=== PATIENT | female | born 1965 | race Caucasian/White ===

== ENCOUNTER → 2016-09-03 | Outpatient (CLI) | payer MEDICARE, MEDICAID ==
--- NOTE | 2016-09-03 12:12 | REP ---
Clinical: Dyspnea. Technique: PA and lateral. Comparison: 01/15/2015. Findings: Linear plate-like atelectasis in the left lower lobe is appreciated. Mediastinum and cardiac silhouette are stable. No further consolidation, effusion, or pneumothorax. Skeletal structures intact. Impression: Linear plate-like atelectasis in the left lower lobe. Signed by Jay Ramirez MD 09/03/2016 12:04 P
== END ==
LOC: M RAD 11:48
PROVIDERS: ATTEND Internal Medicine Pulmonary Disease
DX: J45.21 Mild intermittent asthma with (acute) exacerbation (principal); R91.8 Other nonspecific abnormal finding of lung field

== ENCOUNTER → 2016-09-28 | Outpatient (CLI) | payer MEDICARE, MEDICAID ==
[2016-09-28 16:29] LABS: BASO % 0.7 % (0.0-1.0); EOS # 0.2 K/mm3 (0.0-0.50); EOS % 3.3 % (0.0-3.0); LARGE UNSTAINED CELL # 0.1 K/mm3 (0.0-0.4); LARGE UNSTAINED CELL % 1.2 % (0.0-4.0); LYMPH # 2.3 K/mm3 (1.5-4.5); LYMPH % 30.2 % (24.0-44.0); MEAN CORPUSCULAR HEMOGLOBIN 28.9 pg (27.0-33.0); MEAN CORPUSCULAR HGB CONC 32.4 g/dl (32.0-36.5); MEAN CORPUSCULAR VOLUME 89.4 fl (80.0-96.0); MONO # 0.4 K/mm3 (0.0-0.8); MONO % 4.9 % (0.0-5.0); NEUTROPHILS # 4.4 K/mm3 (1.8-7.7); NEUTROPHILS % 59.7 % (36.0-66.0); PLATELET COUNT, AUTOMATED 299 k/mm3 (150-450); RED CELL DISTRIBUTION WIDTH 13.5 % (11.5-14.5); WHITE BLOOD COUNT 7.3 K/mm3 (4.0-10.0)
[2016-09-28 17:31] LABS: ANION GAP 8 MEQ/L (8-16); BLOOD UREA NITROGEN 10 MG/DL (7-18); CALCIUM LEVEL 8.9 MG/DL (8.5-10.1); CARBON DIOXIDE LEVEL 28 MEQ/L (21-32); CHLORIDE LEVEL 109 MEQ/L (98-107); CREATININE FOR GFR 0.99 MG/DL (0.55-1.02); GLOMERULAR FILTRATION RATE > 60.0 (>51); GLUCOSE, FASTING 89 MG/DL (70-105); POTASSIUM SERUM 4.1 MEQ/L (3.5-5.1); SODIUM LEVEL 145 MEQ/L (136-145)
== END ==
LOC: M LAB 16:06
PROVIDERS: ATTEND Internal Medicine Cardiovascular Disease
DX: E55.9 Vitamin D deficiency, unspecified (principal)

== ENCOUNTER 2016-10-07 09:49 | Emergency (ER) | payer MEDICARE, MEDICAID ==
--- NOTE | 2016-10-07 10:50 | REP ---
Chest one-view HISTORY: chest pain Comparison: None The lungs are clear. The heart is normal in size. The pulmonary vasculature is normal in appearance. Impression: No acute disease. Signed by Bryan Dean MD 10/07/2016 10:42 A
[2016-10-07 10:53] LABS: BASO # 0.1 K/mm3 (0.0-0.2); BASO % 0.7 % (0.0-1.0); EOS # 0.3 K/mm3 (0.0-0.50); EOS % 3.4 % (0.0-3.0); LARGE UNSTAINED CELL # 0.2 K/mm3 (0.0-0.4); LARGE UNSTAINED CELL % 2.1 % (0.0-4.0); LYMPH # 2.6 K/mm3 (1.5-4.5); LYMPH % 29.1 % (24.0-44.0); MEAN CORPUSCULAR HEMOGLOBIN 29.6 pg (27.0-33.0); MEAN CORPUSCULAR HGB CONC 33.6 g/dl (32.0-36.5); MEAN CORPUSCULAR VOLUME 88.1 fl (80.0-96.0); MONO # 0.5 K/mm3 (0.0-0.8); MONO % 5.3 % (0.0-5.0); NEUTROPHILS % 59.4 % (36.0-66.0); PLATELET COUNT, AUTOMATED 280 k/mm3 (150-450); RED CELL DISTRIBUTION WIDTH 13.4 % (11.5-14.5); WHITE BLOOD COUNT 8.5 K/mm3 (4.0-10.0)
[2016-10-07 11:18] LABS: ANION GAP 7 MEQ/L (8-16); BLOOD UREA NITROGEN 7 MG/DL (7-18); CALCIUM LEVEL 8.8 MG/DL (8.5-10.1); CARBON DIOXIDE LEVEL 30 MEQ/L (21-32); CHLORIDE LEVEL 104 MEQ/L (98-107); CREATININE FOR GFR 0.92 MG/DL (0.55-1.02); GLOMERULAR FILTRATION RATE > 60.0 (>51); GLUCOSE, FASTING 103 MG/DL (70-105); POTASSIUM SERUM 4.6 MEQ/L (3.5-5.1); SODIUM LEVEL 141 MEQ/L (136-145)
[2016-10-07] MEDS ORDERED: ISOVUE-370 76% 100ML VIAL (Q9967) As Ordered ONE (11:48)
[2016-10-07] MEDS ORDERED: ASPIRIN 81 MG CHEW TABLET As Ordered ONE (11:50)
[2016-10-07] MEDS ORDERED: NITROGLYCERIN 0.4 MG SUBL TABLET As Ordered ONE (11:50)
--- NOTE | 2016-10-07 12:25 | ECGEPIP ---
Stationary ECG Study [facility] - ED Test Date: 2016-10-07 Pat Name: JENNIFER WARREN Department: Room: - Gender: F Extracorporeal Technician: NASREEN : 1965 Requested By: GOLDY Dorman Order Number: [id number] Reading MD: Andrew Sands Measurements Intervals [place] Rate: 74 P: 28 CA: 208 QRS: 33 QRSD: 105 T: -25 QT: 401 QTc: 447 Interpretive Statements SINUS RHYTHM, BORDERLINE FIRST DEGREE AV BLOCK NONSPECIFIC INFERIOR T WAVE ABNORMALITIES SIMILAR TO 09/01/12 Electronically Signed On 10-07-2016 12:25:23 EST by Andrew Sands
--- NOTE | 2016-10-07 13:17 | REP ---
Clinical: Acute chest pain and shortness of breath. Technique: Axial contrast enhanced images from the thoracic inlet to the upper abdomen using 100 ml Isovue 370 intravenous contrast material with coronal and sagittal re-formations. Findings: Satisfactory enhancement of the pulmonary vasculature is achieved and no filling defects are identified to suggest pulmonary embolus. Thoracic aorta is normal caliber without aneurysm or dissection. Heart and pericardium are unremarkable. Bilateral lung ponce are clear without acute pulmonary parenchymal consolidation or atelectasis. No nodule or mass lesion. No pleural effusion/reaction. No pneumothorax. No adenopathy. Impression: No evidence for pulmonary embolus. No acute pleuroparenchymal or mediastinal process. Signed by Jay Ramirez MD 10/07/2016 01:08 P
--- NOTE | 2016-10-07 18:24 | ECGEPIP ---
Stationary ECG Study [facility] - ED Test Date: 2016-10-07 Pat Name: JENNIFER WARREN Department: Room: - Gender: F Director Of Annual Giving: NASREEN : 1965 Requested By: GOLDY Dorman Order Number: [id number] Reading MD: Andrew Sands Measurements Intervals [place] Rate: 65 P: 22 NE: 221 QRS: 19 QRSD: 106 T: -47 QT: 426 QTc: 445 Interpretive Statements SINUS RHYTHM WITH FIRST DEGREE AV BLOCK MODERATE T-WAVE ABNORMALITY, CONSIDER INFERIOR ISCHEMIA SIMILAR TO 10/07/16 Electronically Signed On 10-07-2016 18:23:38 EST by Andrew Sands
--- NOTE | 2016-10-07 18:57 | EDDOCDS ---
Nurse's Notes [facility] Name: Yuliya Warren Age: 50 yrs Sex: Female : 1965 Arrival Date: 10/07/2016 Time: 09:49 Bed 14 Private MD: Diagnosis: Chest pain, unspecified Presentation: 10/07 10:00 Presenting complaint: Patient states: Had a cardiac cath last because of jo3 troubles with Mitral valve. Has had increased chest pain for two days that "feels like someone is sitting on my chest" with intermittent sharp shooting pain across to the left chest. Primary pain is in mid anterior chest. Chest pain is also accompanied by SOB and diaphoresis. Pt states that the doctor told her after cardiac cath that her arteries were fine but she needs a mitral valve replacement. 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 Adult Sepsis Screening: The patient does not have new or worsening altered mentation. Patient's respiratory rate is less than 22. Systolic blood pressure is greater than 100. Patient has a qSOFA score of 0- Negative Sepsis Screen. Suicide/Homicide risk assessment- the patient denies having any suicidal and/or homicidal ideations and does not present with any other emotional, behavioral or mental health complaints. Status: Patient is not a manager creative services or dependent. Transition of care: patient was not received from another setting of care. 10:00 Acuity: KEYANA Level 2 jo3 10:00 Method Of Arrival: Walkin/Carried/Asstd jo3 Triage Assessment: 10:12 General: Appears in no apparent distress, comfortable, Behavior is appropriate for age, jo3 cooperative. Pain: Pain currently is 8 out of 10 on a pain scale. HIV screening NA for this visit Offered previously. Neurological: Level of Consciousness is awake, alert, Oriented to person, place, time. Cardiovascular: Capillary refill is brisk Heart tones S1 S2 present Rhythm is sinus rhythm No ectopy. Chest pain is described as severe, radiates to left shoulder episodes are continuous intermittent shooting pains began yesterday. Cardiovascular: Edema is absent. Respiratory: Airway is patent Respiratory effort is even, unlabored, Breath sounds are clear bilaterally. Derm: Skin is intact, Skin is clammy, Skin is pale, Skin temperature is cool. 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 Zoloft 100 mg Oral tab 1 tab once daily (Last dose: 10/06/2016 20:00) 2. Zyrtec 10 mg Oral tab 1 tab once daily (Last dose: 10/06/2016 20:00) 3. Singulair 10 mg Oral tab 1 tab once daily 4. Requip 2 mg Oral tab 1 tab Daily (Last dose: 10/06/2016 20:00) 5. gabapentin 300 mg Oral Tb24 1 cap in afternoon and 2 caps in ronine (Last dose: 10/06/2016 20:00) 6. Vitamin B-12 1,000 mcg Oral tab (Last dose: 10/06/2016 07:00) 7. multivitamin Oral tab daily (Last dose: 10/06/2016 08:00) 8. Vitamin D Oral 5000 unit (Last dose: 10/06/2016 07:00) - PMHx: restless leg; Asthma; diabetic neuropathy; Diabetes - NIDDM: controllednot medicated since gastric bypass; aortic stenosis; mitral valve issue (unknown); - PSHx: Appendectomy; Hysterectomy; Adenoidectomy; Repair aortic stenosis; Tonsillectomy; Cholecystectomy; ; Gastric Bypass; cardiac cath; - Social history: Smoking status: Patient states former smoker of tobacco. No barriers to communication noted, The patient speaks fluent Slovak, Speaks appropriately for age. - Family history: Not pertinent. - : The pt / caregiver states he / she is not on anticoagulants. Home medication list is obtained from the patient. - Exposure Risk Screening:: None identified. Screenin:37 Screening information is obtained from the patient. Fall risk: No risks identified. jo3 Assistance ADL's: requires no assistance with activities of daily living. Abuse/DV Screen: The patient / caregiver reports he/she is: not in a situation that causes fear, pain or injury. Nutritional screening: No deficits noted. Advance Directives: There is no active DNR order. home support is adequate. Assessment: 10:37 Reassessment: see triage assessment. XR in room at this time . jo3 11:35 Reassessment: Patient appears in no apparent distress at this time. Patient states jo3 feeling better. Patient states symptoms have improved. Pt states that pain and SOB improved since arrival. Awaiting results at this time. Aware of plan of care . 12:23 General: Appears in no apparent distress, comfortable, Behavior is appropriate for age, jo3 cooperative. General: 3 SL Nitro administered approximately 5 minutes each apart. No significant change noted after each. Pt states that pain may have decreased from 7/10 to 6/10 . Neurological: No deficits noted. Level of Consciousness is awake, alert, Oriented to person, place, time. Cardiovascular: Rhythm is sinus rhythm No ectopy. Respiratory: Airway is patent Respiratory effort is even, unlabored. Derm: Skin is intact, Skin is clammy, Skin is pale. 12:58 General: Appears in no apparent distress, comfortable, Behavior is appropriate for age, jo3 cooperative. General: CT angio completed at this time. returned to room by this sign writer hand. Awaiting results. aware of plan of care . Neurological: Level of Consciousness is awake, alert, Oriented to person, place, time. Respiratory: Airway is patent Respiratory effort is even, unlabored. 14:46 General: Appears in no apparent distress, Behavior is appropriate for age, cooperative, jo3 pleasant. General: Pt reports that she is feeling diaphoretic again at this time. FSBS completed for results of 91. Provider notified. Lunch tray ordered at this time . Neurological: Level of Consciousness is awake, alert, Oriented to person, place, time. Cardiovascular: Rhythm is sinus rhythm No ectopy. Respiratory: Airway is patent Respiratory effort is even, unlabored. Derm: Skin is intact, Skin is clammy, Skin is pale. 15:41 Reassessment: Patient appears in no apparent distress at this time. Patient states jo3 feeling better. Finished with lunch tray at this time. resting on stretcher with mother at bedside. Awaiting labs to be drawn at 1600. Aware of plan of care . 16:45 Reassessment: Patient appears in no apparent distress at this time. No significant jo3 changes noted. pt reports that she continues to feel improved since arrival. Awaiting results for disposition. Aware of plan of care . 17:45 Reassessment:. General: Appears in no apparent distress, comfortable, Behavior is jo3 appropriate for age, cooperative. General: Awaiting results for disposition. Aware of plan of care . Neurological: Level of Consciousness is awake, alert, Oriented to person, place, time. Cardiovascular: Rhythm is sinus rhythm No ectopy. Respiratory: Airway is patent Respiratory effort is even, unlabored. 18:49 General: Appears in no apparent distress, comfortable, Behavior is appropriate for age, jo3 cooperative, pleasant. Pain: Denies pain. Neurological: No deficits noted. Level of Consciousness is awake, alert, Oriented to person, place, time. Respiratory: Airway is patent Respiratory effort is even, unlabored. Vital Signs: 09:50 BP 147 / 73 RA Sitting (auto/reg); Pulse 83; Resp 18; Temp 99.7(O); Pulse Ox 96% on jrd R/A; Weight 117.03 kg; Height 5 ft. 3 in. (160.02 cm); Pain 9/10; 10:14 BP 133 / 62 (auto/); jo3 10:14 Pulse 68 MON; Pulse Ox 100% ; jo3 10:32 BP 119 / 65 (auto/); jo3 10:32 Pulse 70 MON; jo3 10:44 BP 104 / 56 (auto/); jo3 10:44 Pulse 66 MON; Pulse Ox 98% ; jo3 11:28 Temp 98.2(O); jo3 11:53 BP 120 / 89 (auto/); jo3 11:53 Pulse 68 MON; Pulse Ox 98% ; jo3 12:00 BP 116 / 60 (auto/); jo3 12:00 Pulse 76 MON; Pulse Ox 97% ; jo3 12:01 Pain 7/10; jo3 12:10 BP 115 / 57 (auto/); jo3 12:10 Pulse 78 MON; Pulse Ox 96% ; jo3 12:17 BP 103 / 55 (auto/); jo3 12:17 Pulse 78 MON; Pulse Ox 96% ; jo3 13:00 Pulse 68 MON; Pulse Ox 99% ; jo3 13:30 Pulse 68 MON; Pulse Ox 99% ; jo3 13:45 Pulse 70 MON; Pulse Ox 98% ; jo3 14:00 Pulse 68 MON; Pulse Ox 98% ; jo3 14:15 Pulse 66 MON; Pulse Ox 99% ; jo3 14:19 BP 121 / 65 (auto/); jo3 14:19 Pulse 64 MON; Pulse Ox 99% ; jo3 14:45 Pulse 64 MON; Pulse Ox 99% ; jo3 16:06 BP 130 / 59 (auto/); jo3 16:06 Pulse 66 MON; jo3 17:00 BP 120 / 60; Pulse 66 MON; jo3 18:00 BP 127 / 60 (auto/); jo3 18:01 Pulse 68 MON; jo3 18:25 BP 135 / 80; Pulse 72; Resp 17; Temp 97.3(O); Pulse Ox 98% on R/A; lr2 09:50 Body Mass Index 45.70 (117.03 kg, 160.02 cm) jrd Vitals: 09:50 Log In Time: October 07, 2016 at 09:47. jrd 09:50 RN notified that patient meets Red Flag criteria. jrd ED Course: 09:50 Patient visited by Mika Hebert PCA. jrd 09:50 Patient moved to Waiting jrd 09:51 Patient moved to 14 mlb1 09:52 Patient visited by Mika Hebert PCA. jrd 09:53 Patient visited by Mika Hebert PCA. jrd 09:59 EKG done. (by ED staff). Reviewed by Goldy Burnette MD. jml1 10:05 Triage Initiated jo3 10:15 Patient visited by Jaycee Ponce RN. jo3 10:36 Basic Metabolic Profile Sent. jo3 10:36 CBC with Diff Sent. jo3 10:36 Cardiac Injury Profile Sent. jo3 10:36 Troponin Sent. jo3 10:37 Patient visited by Jaycee Ponce RN. jo3 10:37 The patient / caregiver is instructed regarding the plan of care and ED course. Cardiac jo3 monitor on. Pulse ox on. NIBP on. 10:37 Inserted saline lock: 18 gauge in right antecubital area. Labs drawn. (by ED staff). jo3 Sent per order to lab. 11:26 Goldy Burnette MD is Attending Physician. br1 11:29 Chest, 1 View Returned. EDMS 11:34 Patient visited by Goldy Burnette MD. br1 11:44 [facility] [place] was scanned into [employer] and attached to record. mm15 12:25 Patient visited by Jaycee Ponce,NANDINI. jo3 12:26 Patient visited by Jaycee Ponce,NANDINI. jo3 12:28 Patient visited by Jaycee Ponce RN. jo3 12:47 EKG-ADULT Returned. EDMS 12:59 Patient visited by Jaycee Ponce RN. jo3 13:34 CT Chest Angio R/O PE Returned. EDMS 14:17 Patient visited by Jaycee Ponce RN. jo3 15:10 Patient visited by Jaycee Ponce,NANDINI. jo3 15:42 Patient visited by Jaycee Ponce,NANDINI. jo3 16:05 Patient visited by Isaiah Sexton. jml1 16:05 EKG done. (by ED staff). Reviewed by Goldy Burnette MD. jml1 16:10 CARDIAC MARKER PANEL Sent. jml1 17:53 Patient visited by Jaycee Ponce RN. jo3 18:06 Patient visited by Goldy Burnette MD. br1 18:08 Patient visited by Jaycee Ponce RN. jo3 18:19 [facility] is Referral Physician. br1 18:19 Your own Physician is Referral Physician. br1 18:49 Discontinued IV lock intact, bleeding controlled, pressure dressing applied, No jo3 redness/swelling at site. No procedures done that require assistance. Administered Medications: 11:55 Drug: Aspirin 324 mg [aspirin 81 mg chewable tablet (4 tabs)] Route: PO; jo3 11:55 Drug: Nitrostat 0.4 mg [Nitrostat 0.4 mg sublingual tablet (1 tabs)] Route: Sublingual; jo3 12:01 Follow up: Pain 03/01 Adult; Response: Pain is unchanged, physician notified jo3 12:02 Drug: Nitrostat 0.4 mg [Nitrostat 0.4 mg sublingual tablet (1 tabs)] Route: Sublingual; jo3 12:08 Drug: Nitrostat 0.4 mg [Nitrostat 0.4 mg sublingual tablet (1 tabs)] Route: Sublingual; jo3 Order Results: Lab Order: Basic Metabolic Profile; SPEC'M 10/07/16 10:34 Test: GLUCOSE, FASTING; Value: 103; Range: 70-105; Units: MG/DL; Status: F Test: BLOOD UREA NITROGEN; Value: 7; Range: 7-18; Units: MG/DL; Status: F Test: CREATININE FOR GFR; Value: 0.92; Range: 0.55-1.02; Units: MG/DL; Status: F Test: GLOMERULAR FILTRATION RATE; Value: > 60.0; Range: >51; Status: F Test: SODIUM LEVEL; Value: 141; Range: 136-145; Units: MEQ/L; Status: F Test: POTASSIUM SERUM; Value: 4.6; Range: 3.5-5.1; Units: MEQ/L; Status: F Test: CHLORIDE LEVEL; Value: 104; Range: 98-107; Units: MEQ/L; Status: F Test: CARBON DIOXIDE LEVEL; Value: 30; Range: 21-32; Units: MEQ/L; Status: F Test: ANION GAP; Value: 7; Range: 8-16; Abnormal: Below low normal; Units: MEQ/L; Status: F Test: CALCIUM LEVEL; Value: 8.8; Range: 8.5-10.1; Units: MG/DL; Status: F Test Note: ; Units are mL/min/1.73 m2 Chronic Kidney Disease Staging per NKF: Stage I & II GFR >=60 Normal to Mildly Decreased Stage III GFR 30-59 Moderately Decreased Stage IV GFR 15-29 Severely Decreased Stage V GFR <15 Very Little GFR Left ESRD GFR <15 on STAMPING BENCH DIE MAKER Lab Order: CBC with Diff; SPEC'M 10/07/16 10:34 Test: WHITE BLOOD COUNT; Value: 8.5; Range: 4.0-10.0; Units: K/mm3; Status: F Test: RED BLOOD COUNT; Value: 4.27; Range: 4.00-5.40; Units: M/mm3; Status: F Test: HEMOGLOBIN; Value: 12.6; Range: 12.0-16.0; Units: g/dl; Status: F Test: HEMATOCRIT; Value: 37.6; Range: 36.0-47.0; Units: %; Status: F Test: MEAN CORPUSCULAR VOLUME; Value: 88.1; Range: 80.0-96.0; Units: fl; Status: F Test: MEAN CORPUSCULAR HEMOGLOBIN; Value: 29.6; Range: 27.0-33.0; Units: pg; Status: F Test: MEAN CORPUSCULAR HGB CONC; Value: 33.6; Range: 32.0-36.5; Units: g/dl; Status: F Test: RED CELL DISTRIBUTION WIDTH; Value: 13.4; Range: 11.5-14.5; Units: %; Status: F Test: PLATELET COUNT, AUTOMATED; Value: 280; Range: 150-450; Units: k/mm3; Status: F Test: NEUTROPHILS %; Value: 59.4; Range: 36.0-66.0; Units: %; Status: F Test: LYMPH %; Value: 29.1; Range: 24.0-44.0; Units: %; Status: F Test: MONO %; Value: 5.3; Range: 0.0-5.0; Abnormal: Above high normal; Units: %; Status: F Test: EOS %; Value: 3.4; Range: 0.0-3.0; Abnormal: Above high normal; Units: %; Status: F Test: BASO %; Value: 0.7; Range: 0.0-1.0; Units: %; Status: F Test: LARGE UNSTAINED CELL %; Value: 2.1; Range: 0.0-4.0; Units: %; Status: F Test: NEUTROPHILS #; Value: 5.0; Range: 1.8-7.7; Units: K/mm3; Status: F Test: LYMPH #; Value: 2.6; Range: 1.5-4.5; Units: K/mm3; Status: F Test: MONO #; Value: 0.5; Range: 0.0-0.8; Units: K/mm3; Status: F Test: EOS #; Value: 0.3; Range: 0.0-0.50; Units: K/mm3; Status: F Test: BASO #; Value: 0.1; Range: 0.0-0.2; Units: K/mm3; Status: F Test: LARGE UNSTAINED CELL #; Value: 0.2; Range: 0.0-0.4; Units: K/mm3; Status: F Lab Order: Cardiac Injury Profile; SPEC'M 10/07/16 10:34 Test: CPK CREATINE PHOSPHOKINASE; Value: 41; Range: 26-192; Units: U/L; Status: F Test: CK-MB VALUE MASS; Value: 1.0; Range: 0.0-3.6; Units: NG/ML; Status: F Test: MB/CK RELATIVE INDEX; Value: 2.43; Range: < OR =4; Status: F Test Note: ; DIAGNOSIS CRITERIA MMB ng/ml Relative Index (RI) NON-AMI < or = 5 N/A ALLEN ZONE > 5 < or = 4 AMI > 5 > 4 Lab Order: Troponin; [facility] 10/07/16 10:34 Test: TROPONIN I; Value: < 0.02; Range: < 0.10; Units: NG/ML; Status: F Test Note: ; Troponin I Reference Interval for [employer] LOCI: 99th Percentile= 0.00-0.045 ng/ml Risk Stratification: <= 0.10 ng/ml Decreased Risk for Adverse Clinical Events. 0.10-1.50 ng/ml Increased Risk for Adverse Clinical Events. Evaluation of additional criterion and/or repeat testing in 2-6 hours is suggested to rule out myocardial damage. >= 1.50 ng/ml Indicative of Myocardial Injury. Lab Order: Fingerstick Blood Sugar; [facility] 10/07/16 14:40 Test: BEDSIDE GLUCOSE; Value: 91; Range: 70-105; Units: MG/DL; Status: F Lab Order: CARDIAC MARKER PANEL; [facility] 10/07/16 16:07 Test: CPK CREATINE PHOSPHOKINASE; Value: 79; Range: 26-192; Abnormal: Delta; Units: U/L; Status: F Test: CK-MB VALUE MASS; Value: 1.0; Range: 0.0-3.6; Units: NG/ML; Status: F Test: MB/CK RELATIVE INDEX; Value: 1.26; Range: < OR =4; Status: F Test: TROPONIN I; Value: < 0.02; Range: < 0.10; Units: NG/ML; Status: F Test Note: ; DIAGNOSIS CRITERIA MMB ng/ml Relative Index (RI) NON-AMI < or = 5 N/A ALLEN ZONE > 5 < or = 4 AMI > 5 > 4 Radiology Order: EKG-ADULT Test: EKG-ADULT REASON FOR EXAMINATION: Chest Pain; Stationary ECG Study; [facility] - ED; ; Test Date: 2016-10-07; Pat Name: YULIYA WARREN Department:; Room: -; Gender: F Director Of Strategic Initiatives: ChristineKylie; : 1965 Requested By: GOLDY Dorman; Order Number: [id number] Reading MD: Andrew Sands; Measurements; Intervals [place]; Rate: 74 P: 28; OK: 208 QRS: 33; QRSD: 105 T: -25; QT: 401; QTc: 447; Interpretive Statements; SINUS RHYTHM, BORDERLINE FIRST DEGREE AV BLOCK; NONSPECIFIC INFERIOR T WAVE ABNORMALITIES; SIMILAR TO 09/01/12; Electronically Signed On 10-07-2016 12:25:23 EST by Andrew Sands; Radiology Order: Chest, 1 View Test: Chest, 1 View REASON FOR EXAMINATION: Chest Pain; Chest one-view; ; HISTORY: chest pain; ; Comparison: None; ; The lungs are clear. The heart is normal in size. The pulmonary vasculature is; normal in appearance.; ; Impression: No acute disease.; ; ; Signed by; Bryan Dean MD 10/07/2016 10:42 A; Radiology Order: CT Chest Angio R/O PE Test: CT Chest Angio R/O PE REASON FOR EXAMINATION: Chest Pain;Shortness of Breath; Clinical: Acute chest pain and shortness of breath.; ; Technique: Axial contrast enhanced images from the thoracic inlet to the upper; abdomen using 100 ml Isovue 370 intravenous contrast material with coronal and; sagittal re-formations.; ; Findings: Satisfactory enhancement of the pulmonary vasculature is achieved and; no filling defects are identified to suggest pulmonary embolus. Thoracic aorta; is normal caliber without aneurysm or dissection. Heart and pericardium are; unremarkable. Bilateral lung ponce are clear without acute pulmonary; parenchymal consolidation or atelectasis. No nodule or mass lesion. No pleural; effusion/reaction. No pneumothorax. No adenopathy.; ; Impression:; No evidence for pulmonary embolus.; No acute pleuroparenchymal or mediastinal process.; ; ; Signed by; Jay Ramirez MD 10/07/2016 01:08 P; Outcome: 18:20 Discharge ordered by Provider. br1 18:49 Discharge Assessment: Patient awake, alert and oriented x 3. No cognitive and/or jo3 functional deficits noted. Patient verbalized understanding of disposition instructions. patient administered narcotics - no. The following High Risk Discharge criteria are identified: None. Discharged to home ambulatory, with family. Condition: stable Condition: improved. Discharge instructions given to patient, Instructed on discharge instructions, follow up and referral plans. Demonstrated understanding of instructions, Pt was receptive of discharge instructions/ teaching. CT Study completed. Property sent home with patient. 18:56 Patient left the ED. jo3 Signatures: Dispatcher [employer] EDClarence Crooks RN RN mlb1 Jaycee PonceRN RN jo3 Goldy Burnette MD MD br1 Isaiah Sexton jml1 Magy Murillo mm15 Mika Hebert, JUSTIN RISK DEVELOPER jrd Ryann Matute2 JOSE ELIAS
--- NOTE | 2016-10-07 18:58 | EDDOCDS ---
Physician Documentation [facility] Name: Yuliya Jacob Age: 50 yrs Sex: Female : 1965 Arrival Date: 10/07/2016 Time: 09:49 Bed 14 Private MD: Disposition: 10/07/16 18:20 Discharged to Home/Self Care. Impression: Chest pain, unspecified. - Condition is Stable. - Discharge Instructions: Nonspecific Chest Pain. - Medication Reconciliation, Local Pharmacy Hours form. - Follow up: [facility] - Adults; When: 1 - 2 days; Reason: Recheck today's complaints. Follow up: Your own Physician; When: 2 - 3 days; Reason: Recheck today's complaints. - Problem is new. - Symptoms are resolved. - Notes: You were seen in the ED for chest pain. Bloodwork along with EKG of the heart, chest Xray, and CT scan of the chest showed no acute findings. We have consulted with your [place] group as well who has recommended you may return home to follow up with your primary doctor and with them in the office. Please call these two offices today to make these appointments. Return to the ED for any chest pain, trouble breathing, lightheadedness, loss of consciousness or any other concerns. Historical: - Allergies: Ultram; Codeine Sulfate; Percocet; - Home Meds: 1. Zoloft 100 mg Oral tab 1 tab once daily (Last dose: 10/06/2016 20:00) 2. Zyrtec 10 mg Oral tab 1 tab once daily (Last dose: 10/06/2016 20:00) 3. Singulair 10 mg Oral tab 1 tab once daily 4. Requip 2 mg Oral tab 1 tab Daily (Last dose: 10/06/2016 20:00) 5. gabapentin 300 mg Oral Tb24 1 cap in afternoon and 2 caps in ronnie (Last dose: 10/06/2016 20:00) 6. Vitamin B-12 1,000 mcg Oral tab (Last dose: 10/06/2016 07:00) 7. multivitamin Oral tab daily (Last dose: 10/06/2016 08:00) 8. Vitamin D Oral 5000 unit (Last dose: 10/06/2016 07:00) - PMHx: restless leg; Asthma; diabetic neuropathy; Diabetes - NIDDM: controllednot medicated since gastric bypass; aortic stenosis; mitral valve issue (unknown); - PSHx: Appendectomy; Hysterectomy; Adenoidectomy; Repair aortic stenosis; Tonsillectomy; Cholecystectomy; ; Gastric Bypass; cardiac cath; - Social history: Smoking status: Patient states former smoker of tobacco. No barriers to communication noted, The patient speaks fluent Danish, Speaks appropriately for age. - Family history: Not pertinent. - : The pt / caregiver states he / she is not on anticoagulants. Home medication list is obtained from the patient. - Exposure Risk Screening:: None identified. 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 3 in. (160.02 cm); Pain 9/10; 10:14 BP 133 / 62 (auto/); jo3 10:14 Pulse 68 MON; Pulse Ox 100% ; jo3 10:32 BP 119 / 65 (auto/); jo3 10:32 Pulse 70 MON; jo3 10:44 BP 104 / 56 (auto/); jo3 10:44 Pulse 66 MON; Pulse Ox 98% ; jo3 11:28 Temp 98.2(O); jo3 11:53 BP 120 / 89 (auto/); jo3 11:53 Pulse 68 MON; Pulse Ox 98% ; jo3 12:00 BP 116 / 60 (auto/); jo3 12:00 Pulse 76 MON; Pulse Ox 97% ; jo3 12:01 Pain 7/10; jo3 12:10 BP 115 / 57 (auto/); jo3 12:10 Pulse 78 MON; Pulse Ox 96% ; jo3 12:17 BP 103 / 55 (auto/); jo3 12:17 Pulse 78 MON; Pulse Ox 96% ; jo3 13:00 Pulse 68 MON; Pulse Ox 99% ; jo3 13:30 Pulse 68 MON; Pulse Ox 99% ; jo3 13:45 Pulse 70 MON; Pulse Ox 98% ; jo3 14:00 Pulse 68 MON; Pulse Ox 98% ; jo3 14:15 Pulse 66 MON; Pulse Ox 99% ; jo3 14:19 BP 121 / 65 (auto/); jo3 14:19 Pulse 64 MON; Pulse Ox 99% ; jo3 14:45 Pulse 64 MON; Pulse Ox 99% ; jo3 16:06 BP 130 / 59 (auto/); jo3 16:06 Pulse 66 MON; jo3 17:00 BP 120 / 60; Pulse 66 MON; jo3 18:00 BP 127 / 60 (auto/); jo3 18:01 Pulse 68 MON; jo3 18:25 BP 135 / 80; Pulse 72; Resp 17; Temp 97.3(O); Pulse Ox 98% on R/A; lr2 09:50 Body Mass Index 45.70 (117.03 kg, 160.02 cm) jrd MDM: 09:54 ECG WITH READING ER PHYS+CARDIAG ordered. EDMS 10:03 Cabinet Builder/Pulse Ox/q 30 min VS ordered. br1 10:03 IV Saline Lock ordered. br1 10:03 Rhythm Strip to chart ordered. br1 10:03 Undress patient appropriately for examination ordered. br1 10:03 Basic Metabolic Profile Ordered. EDMS 10:03 CBC with Diff Ordered. EDMS 10:03 Cardiac Injury Profile Ordered. EDMS 10:03 Troponin Ordered. EDMS 10:13 Chest, 1 View Ordered. EDMS 11:35 Aspirin 324 mg PO once ordered. br1 11:35 Nitrostat 0.4 mg Sublingual every 5 minutes; hold if SBP<90mmHg.Document Pain Score br1 Response to Each Dose x3 ordered. 11:37 CT Chest Angio R/O PE Ordered. EDMS 11:41 Financial registration complete. mm15 11:44 [facility] Payment Agreement was scanned into Smeet and attached to record. mm15 14:29 Basic Metabolic Profile Reviewed. br1 14:29 CBC with Diff Reviewed. br1 14:29 Cardiac Injury Profile Reviewed. br1 14:29 Troponin Reviewed. br1 14:29 EKG-ADULT Reviewed. br1 14:29 Chest, 1 View Reviewed. br1 14:29 CT Chest Angio R/O PE Reviewed. br1 14:37 Repeat EKG (put time details section) ordered. br1 14:37 Redraw CIP &Troponin (put time in details section) ordered. br1 14:37 Admit to ED Observation status ordered. br1 14:49 REGULAR+DIET ordered. EDMS 14:50 Fingerstick Blood Sugar Ordered. EDMS 14:58 Repeat EKG (put time details section) complete. lbd 14:58 Redraw CIP &Troponin (put time in details section) complete. lbd 14:58 Admit to ED Observation status complete. lbd 15:02 ECG WITH READING ER PHYS ordered. EDMS 15:03 CARDIAC MARKER PANEL Ordered. EDMS 18:05 CARDIAC MARKER PANEL Reviewed. br1 18:05 Fingerstick Blood Sugar Reviewed. br1 Administered Medications: 11:55 Drug: Aspirin 324 mg [aspirin 81 mg chewable tablet (4 tabs)] Route: PO; jo3 11:55 Drug: Nitrostat 0.4 mg [Nitrostat 0.4 mg sublingual tablet (1 tabs)] Route: Sublingual; jo3 12:01 Follow up: Pain 03/01 Adult; Response: Pain is unchanged, physician notified jo3 12:02 Drug: Nitrostat 0.4 mg [Nitrostat 0.4 mg sublingual tablet (1 tabs)] Route: Sublingual; jo3 12:08 Drug: Nitrostat 0.4 mg [Nitrostat 0.4 mg sublingual tablet (1 tabs)] Route: Sublingual; jo3 Signatures: Dispatcher [employer] Laurel Harrison, Net Repairer [facility] Jaycee Ponce,RN RN jo3 Tanner Burnette MD MD br1 Magy Murillo mm15 The chart was reviewed and I authenticate all verbal orders and agree with the evaluation and treatment provided.Attachments: 11:44 [facility] [place] Payment Agreement mm15 MTDD
--- NOTE | 2016-10-09 19:57 | EDDOCDS ---
Physician Documentation [facility] Name: Yuliya Jacob Age: 50 yrs Sex: Female : 1965 Arrival Date: 10/07/2016 Time: 09:49 Bed 14 Private MD: Disposition: 10/07/16 18:20 Discharged to Home/Self Care. Impression: Chest pain, unspecified. - Condition is Stable. - Discharge Instructions: Nonspecific Chest Pain. - Medication Reconciliation, Local Pharmacy Hours form. - Follow up: [facility] - Adults; When: 1 - 2 days; Reason: Recheck today's complaints. Follow up: Your own Physician; When: 2 - 3 days; Reason: Recheck today's complaints. - Problem is new. - Symptoms are resolved. - Notes: You were seen in the ED for chest pain. Bloodwork along with EKG of the heart, chest Xray, and CT scan of the chest showed no acute findings. We have consulted with your [place]' [facility]iology group as well who has recommended you may return home to follow up with your primary doctor and with them in the office. Please call these two offices today to make these appointments. Return to the ED for any chest pain, trouble breathing, lightheadedness, loss of consciousness or any other concerns. Historical: - Allergies: Ultram; Codeine Sulfate; Percocet; - Home Meds: 1. Zoloft 100 mg Oral tab 1 tab once daily (Last dose: 10/06/2016 20:00) 2. Zyrtec 10 mg Oral tab 1 tab once daily (Last dose: 10/06/2016 20:00) 3. Singulair 10 mg Oral tab 1 tab once daily 4. Requip 2 mg Oral tab 1 tab Daily (Last dose: 10/06/2016 20:00) 5. gabapentin 300 mg Oral Tb24 1 cap in afternoon and 2 caps in ronnie (Last dose: 10/06/2016 20:00) 6. Vitamin B-12 1,000 mcg Oral tab (Last dose: 10/06/2016 07:00) 7. multivitamin Oral tab daily (Last dose: 10/06/2016 08:00) 8. Vitamin D Oral 5000 unit (Last dose: 10/06/2016 07:00) - PMHx: restless leg; Asthma; diabetic neuropathy; Diabetes - NIDDM: controllednot medicated since gastric bypass; aortic stenosis; mitral valve issue (unknown); - PSHx: Appendectomy; Hysterectomy; Adenoidectomy; Repair aortic stenosis; Tonsillectomy; Cholecystectomy; ; Gastric Bypass; cardiac cath; - Social history: Smoking status: Patient states former smoker of tobacco. No barriers to communication noted, The patient speaks fluent Arabic, Speaks appropriately for age. - Family history: Not pertinent. - : The pt / caregiver states he / she is not on anticoagulants. Home medication list is obtained from the patient. - Exposure Risk Screening:: None identified. 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 3 in. (160.02 cm); Pain 9/10; 10:14 BP 133 / 62 (auto/); jo3 10:14 Pulse 68 MON; Pulse Ox 100% ; jo3 10:32 BP 119 / 65 (auto/); jo3 10:32 Pulse 70 MON; jo3 10:44 BP 104 / 56 (auto/); jo3 10:44 Pulse 66 MON; Pulse Ox 98% ; jo3 11:28 Temp 98.2(O); jo3 11:53 BP 120 / 89 (auto/); jo3 11:53 Pulse 68 MON; Pulse Ox 98% ; jo3 12:00 BP 116 / 60 (auto/); jo3 12:00 Pulse 76 MON; Pulse Ox 97% ; jo3 12:01 Pain 7/10; jo3 12:10 BP 115 / 57 (auto/); jo3 12:10 Pulse 78 MON; Pulse Ox 96% ; jo3 12:17 BP 103 / 55 (auto/); jo3 12:17 Pulse 78 MON; Pulse Ox 96% ; jo3 13:00 Pulse 68 MON; Pulse Ox 99% ; jo3 13:30 Pulse 68 MON; Pulse Ox 99% ; jo3 13:45 Pulse 70 MON; Pulse Ox 98% ; jo3 14:00 Pulse 68 MON; Pulse Ox 98% ; jo3 14:15 Pulse 66 MON; Pulse Ox 99% ; jo3 14:19 BP 121 / 65 (auto/); jo3 14:19 Pulse 64 MON; Pulse Ox 99% ; jo3 14:45 Pulse 64 MON; Pulse Ox 99% ; jo3 16:06 BP 130 / 59 (auto/); jo3 16:06 Pulse 66 MON; jo3 17:00 BP 120 / 60; Pulse 66 MON; jo3 18:00 BP 127 / 60 (auto/); jo3 18:01 Pulse 68 MON; jo3 18:25 BP 135 / 80; Pulse 72; Resp 17; Temp 97.3(O); Pulse Ox 98% on R/A; lr2 09:50 Body Mass Index 45.70 (117.03 kg, 160.02 cm) jrd MDM: 09:54 ECG WITH READING ER PHYS+CARDIAG ordered. EDMS 10:03 Relay Record Clerk/Pulse Ox/q 30 min VS ordered. br1 10:03 IV Saline Lock ordered. br1 10:03 Rhythm Strip to chart ordered. br1 10:03 Undress patient appropriately for examination ordered. br1 10:03 Basic Metabolic Profile Ordered. EDMS 10:03 CBC with Diff Ordered. EDMS 10:03 Cardiac Injury Profile Ordered. EDMS 10:03 Troponin Ordered. EDMS 10:13 Chest, 1 View Ordered. EDMS 11:35 Aspirin 324 mg PO once ordered. br1 11:35 Nitrostat 0.4 mg Sublingual every 5 minutes; hold if SBP<90mmHg.Document Pain Score br1 Response to Each Dose x3 ordered. 11:37 CT Chest Angio R/O PE Ordered. EDMS 11:41 Financial registration complete. mm15 11:44 [facility] Payment Agreement was scanned into Kraken and attached to record. mm15 14:29 Basic Metabolic Profile Reviewed. br1 14:29 CBC with Diff Reviewed. br1 14:29 Cardiac Injury Profile Reviewed. br1 14:29 Troponin Reviewed. br1 14:29 EKG-ADULT Reviewed. br1 14:29 Chest, 1 View Reviewed. br1 14:29 CT Chest Angio R/O PE Reviewed. br1 14:37 Repeat EKG (put time details section) ordered. br1 14:37 Redraw CIP &Troponin (put time in details section) ordered. br1 14:37 Admit to ED Observation status ordered. br1 14:49 REGULAR+DIET ordered. EDMS 14:50 Fingerstick Blood Sugar Ordered. EDMS 14:58 Repeat EKG (put time details section) complete. lbd 14:58 Redraw CIP &Troponin (put time in details section) complete. lbd 14:58 Admit to ED Observation status complete. lbd 15:02 ECG WITH READING ER PHYS ordered. EDMS 15:03 CARDIAC MARKER PANEL Ordered. EDMS 18:05 CARDIAC MARKER PANEL Reviewed. br1 18:05 Fingerstick Blood Sugar Reviewed. br1 10/08 12:16 T-Sheet-- Draft Copy was scanned into Kraken and attached to record. gb 12:16 ECG/EKG was scanned into Kraken and attached to record. gb 12:16 Radiology Report was scanned into Kraken and attached to record. gb Administered Medications: 10/07 11:55 Drug: Aspirin 324 mg [aspirin 81 mg chewable tablet (4 tabs)] Route: PO; jo3 11:55 Drug: Nitrostat 0.4 mg [Nitrostat 0.4 mg sublingual tablet (1 tabs)] Route: Sublingual; jo3 12:01 Follow up: Pain 03/01 Adult; Response: Pain is unchanged, physician notified jo3 12:02 Drug: Nitrostat 0.4 mg [Nitrostat 0.4 mg sublingual tablet (1 tabs)] Route: Sublingual; jo3 12:08 Drug: Nitrostat 0.4 mg [Nitrostat 0.4 mg sublingual tablet (1 tabs)] Route: Sublingual; jo3 Signatures: Dispatcher [employer] EDMS Laurel Broderick, Pediatric Nephrologist Unit lbd Kely Salazar, Reg Reg gb Jaycee Ponce RN RN jo3 Tanner Burnette MD MD br1 Magy Murillo mm15 The chart was reviewed and I authenticate all verbal orders and agree with the evaluation and treatment provided.Attachments: 11:44 [facility] Payment Agreement mm15 10/08 12:16 T-Sheet-- Draft Copy gb 12:16 ECG/EKG gb Chart Complete MTDD
--- NOTE | 2016-10-09 19:57 | EDDOCDS ---
Nurse's Notes [facility] Name: Jennifer Warren Age: 50 yrs Sex: Female : 1965 Arrival Date: 10/07/2016 Time: 09:49 Bed 14 Private MD: Diagnosis: Chest pain, unspecified Presentation: 10/07 10:00 Presenting complaint: Patient states: Had a cardiac cath last because of jo3 troubles with Mitral valve. Has had increased chest pain for two days that "feels like someone is sitting on my chest" with intermittent sharp shooting pain across to the left chest. Primary pain is in mid anterior chest. Chest pain is also accompanied by SOB and diaphoresis. Pt states that the doctor told her after cardiac cath that her arteries were fine but she needs a mitral valve replacement. Aspirin was taken AIDS NURSE. 81mg. Adult Sepsis Screening: The patient does not have new or worsening altered mentation. Patient's respiratory rate is less than 22. Systolic blood pressure is greater than 100. Patient has a qSOFA score of 0- Negative Sepsis Screen. Suicide/Homicide risk assessment- the patient denies having any suicidal and/or homicidal ideations and does not present with any other emotional, behavioral or mental health complaints. 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 Transition of care: patient was not received from another setting of care. 10:00 Acuity: KEYANA Level 2 jo3 10:00 Method Of Arrival: Walkin/Carried/Asstd jo3 Triage Assessment: 10:12 General: Appears in no apparent distress, comfortable, Behavior is appropriate for age, jo3 cooperative. Pain: Pain currently is 8 out of 10 on a pain scale. HIV screening NA for this visit Offered previously. Neurological: Level of Consciousness is awake, alert, Oriented to person, place, time. Cardiovascular: Capillary refill is brisk Heart tones S1 S2 present Rhythm is sinus rhythm No ectopy. Chest pain is described as severe, radiates to left shoulder episodes are continuous intermittent shooting pains began yesterday. Cardiovascular: Edema is absent. Respiratory: Airway is patent Respiratory effort is even, unlabored, Breath sounds are clear bilaterally. Derm: Skin is intact, Skin is clammy, Skin is pale, Skin temperature is cool. INVOICE CODER: 10:11 LMP N/A - Hysterectomy jo3 Historical: - Allergies: Ultram; Codeine Sulfate; Percocet; - Home Meds: 1. Zoloft 100 mg Oral tab 1 tab once daily (Last dose: 10/06/2016 20:00) 2. Zyrtec 10 mg Oral tab 1 tab once daily (Last dose: 10/06/2016 20:00) 3. Singulair 10 mg Oral tab 1 tab once daily 4. Requip 2 mg Oral tab 1 tab Daily (Last dose: 10/06/2016 20:00) 5. gabapentin 300 mg Oral Tb24 1 cap in afternoon and 2 caps in ronnie (Last dose: 10/06/2016 20:00) 6. Vitamin B-12 1,000 mcg Oral tab (Last dose: 10/06/2016 07:00) 7. multivitamin Oral tab daily (Last dose: 10/06/2016 08:00) 8. Vitamin D Oral 5000 unit (Last dose: 10/06/2016 07:00) - PMHx: restless leg; Asthma; diabetic neuropathy; Diabetes - NIDDM: controllednot medicated since gastric bypass; aortic stenosis; mitral valve issue (unknown); - PSHx: Appendectomy; Hysterectomy; Adenoidectomy; Repair aortic stenosis; Tonsillectomy; Cholecystectomy; ; Gastric Bypass; cardiac cath; - Social history: Smoking status: Patient states former smoker of tobacco. No barriers to communication noted, The patient speaks fluent Nauruan, Speaks appropriately for age. - Family history: Not pertinent. - : The pt / caregiver states he / she is not on anticoagulants. Home medication list is obtained from the patient. - Exposure Risk Screening:: None identified. Screenin:37 Screening information is obtained from the patient. Fall risk: No risks identified. jo3 Assistance ADL's: requires no assistance with activities of daily living. Abuse/DV Screen: The patient / caregiver reports he/she is: not in a situation that causes fear, pain or injury. Nutritional screening: No deficits noted. Advance Directives: There is no active DNR order. home support is adequate. Assessment: 10:37 Reassessment: see triage assessment. XR in room at this time . jo3 11:35 Reassessment: Patient appears in no apparent distress at this time. Patient states jo3 feeling better. Patient states symptoms have improved. Pt states that pain and SOB improved since arrival. Awaiting results at this time. Aware of plan of care . 12:23 General: Appears in no apparent distress, comfortable, Behavior is appropriate for age, jo3 cooperative. General: 3 SL Nitro administered approximately 5 minutes each apart. No significant change noted after each. Pt states that pain may have decreased from 7/10 to 6/10 . Neurological: No deficits noted. Level of Consciousness is awake, alert, Oriented to person, place, time. Cardiovascular: Rhythm is sinus rhythm No ectopy. Respiratory: Airway is patent Respiratory effort is even, unlabored. Derm: Skin is intact, Skin is clammy, Skin is pale. 12:58 General: Appears in no apparent distress, comfortable, Behavior is appropriate for age, jo3 cooperative. General: CT angio completed at this time. returned to room by this proposal lead writer. Awaiting results. aware of plan of care . Neurological: Level of Consciousness is awake, alert, Oriented to person, place, time. Respiratory: Airway is patent Respiratory effort is even, unlabored. 14:46 General: Appears in no apparent distress, Behavior is appropriate for age, cooperative, jo3 pleasant. General: Pt reports that she is feeling diaphoretic again at this time. FSBS completed for results of 91. Provider notified. Lunch tray ordered at this time . Neurological: Level of Consciousness is awake, alert, Oriented to person, place, time. Cardiovascular: Rhythm is sinus rhythm No ectopy. Respiratory: Airway is patent Respiratory effort is even, unlabored. Derm: Skin is intact, Skin is clammy, Skin is pale. 15:41 Reassessment: Patient appears in no apparent distress at this time. Patient states jo3 feeling better. Finished with lunch tray at this time. resting on stretcher with mother at bedside. Awaiting labs to be drawn at 1600. Aware of plan of care . 16:45 Reassessment: Patient appears in no apparent distress at this time. No significant jo3 changes noted. pt reports that she continues to feel improved since arrival. Awaiting results for disposition. Aware of plan of care . 17:45 Reassessment:. General: Appears in no apparent distress, comfortable, Behavior is jo3 appropriate for age, cooperative. General: Awaiting results for disposition. Aware of plan of care . Neurological: Level of Consciousness is awake, alert, Oriented to person, place, time. Cardiovascular: Rhythm is sinus rhythm No ectopy. Respiratory: Airway is patent Respiratory effort is even, unlabored. 18:49 General: Appears in no apparent distress, comfortable, Behavior is appropriate for age, jo3 cooperative, pleasant. Pain: Denies pain. Neurological: No deficits noted. Level of Consciousness is awake, alert, Oriented to person, place, time. Respiratory: Airway is patent Respiratory effort is even, unlabored. Vital Signs: 09:50 BP 147 / 73 RA Sitting (auto/reg); Pulse 83; Resp 18; Temp 99.7(O); Pulse Ox 96% on jrd R/A; Weight 117.03 kg; Height 5 ft. 3 in. (160.02 cm); Pain 9/10; 10:14 BP 133 / 62 (auto/); jo3 10:14 Pulse 68 MON; Pulse Ox 100% ; jo3 10:32 BP 119 / 65 (auto/); jo3 10:32 Pulse 70 MON; jo3 10:44 BP 104 / 56 (auto/); jo3 10:44 Pulse 66 MON; Pulse Ox 98% ; jo3 11:28 Temp 98.2(O); jo3 11:53 BP 120 / 89 (auto/); jo3 11:53 Pulse 68 MON; Pulse Ox 98% ; jo3 12:00 BP 116 / 60 (auto/); jo3 12:00 Pulse 76 MON; Pulse Ox 97% ; jo3 12:01 Pain 7/10; jo3 12:10 BP 115 / 57 (auto/); jo3 12:10 Pulse 78 MON; Pulse Ox 96% ; jo3 12:17 BP 103 / 55 (auto/); jo3 12:17 Pulse 78 MON; Pulse Ox 96% ; jo3 13:00 Pulse 68 MON; Pulse Ox 99% ; jo3 13:30 Pulse 68 MON; Pulse Ox 99% ; jo3 13:45 Pulse 70 MON; Pulse Ox 98% ; jo3 14:00 Pulse 68 MON; Pulse Ox 98% ; jo3 14:15 Pulse 66 MON; Pulse Ox 99% ; jo3 14:19 BP 121 / 65 (auto/); jo3 14:19 Pulse 64 MON; Pulse Ox 99% ; jo3 14:45 Pulse 64 MON; Pulse Ox 99% ; jo3 16:06 BP 130 / 59 (auto/); jo3 16:06 Pulse 66 MON; jo3 17:00 BP 120 / 60; Pulse 66 MON; jo3 18:00 BP 127 / 60 (auto/); jo3 18:01 Pulse 68 MON; jo3 18:25 BP 135 / 80; Pulse 72; Resp 17; Temp 97.3(O); Pulse Ox 98% on R/A; lr2 09:50 Body Mass Index 45.70 (117.03 kg, 160.02 cm) jrd Vitals: 09:50 Log In Time: October 07, 2016 at 09:47. jrd 09:50 RN notified that patient meets Red Flag criteria. jrd ED Course: 09:50 Patient visited by Mika Hebert PCA. jrd 09:50 Patient moved to Waiting jrd 09:51 Patient moved to 14 mlb1 09:52 Patient visited by Mika Hebert PCA. jrd 09:53 Patient visited by Mika Hebert PCA. jrd 09:59 EKG done. (by ED staff). Reviewed by Tanner Burnette MD. jml1 10:05 Triage Initiated jo3 10:15 Patient visited by Jaycee Ponce RN. jo3 10:36 Basic Metabolic Profile Sent. jo3 10:36 CBC with Diff Sent. jo3 10:36 Cardiac Injury Profile Sent. jo3 10:36 Troponin Sent. jo3 10:37 Patient visited by Jaycee Ponce RN. jo3 10:37 The patient / caregiver is instructed regarding the plan of care and ED course. Cardiac jo3 monitor on. Pulse ox on. NIBP on. 10:37 Inserted saline lock: 18 gauge in right antecubital area. Labs drawn. (by ED staff). jo3 Sent per order to lab. 11:26 Tanner Burnette MD is Attending Physician. br1 11:29 Chest, 1 View Returned. EDMS 11:34 Patient visited by Tanner Burnette MD. br1 11:44 [facility] Payment Agreement was scanned into [employer] and attached to record. mm15 12:25 Patient visited by Jaycee Ponce,NANDINI. jo3 12:26 Patient visited by Jaycee Ponce,NANDINI. jo3 12:28 Patient visited by Jaycee Ponce RN. jo3 12:47 EKG-ADULT Returned. EDMS 12:59 Patient visited by Jaycee Ponce,NANDINI. jo3 13:34 CT Chest Angio R/O PE Returned. EDMS 14:17 Patient visited by Jaycee Ponce,NANDINI. jo3 15:10 Patient visited by Jaycee Ponce,NANDINI. jo3 15:42 Patient visited by Jaycee Ponce,NANDINI. jo3 16:05 Patient visited by Isaiah Sexton. jml1 16:05 EKG done. (by ED staff). Reviewed by Tanner Burnette MD. jml1 16:10 CARDIAC MARKER PANEL Sent. jml1 17:53 Patient visited by Jayece Ponce,NANDINI. jo3 18:06 Patient visited by Tanner Burnette MD. br1 18:08 Patient visited by Jaycee Ponce RN. jo3 18:19 [facility] is Referral Physician. br1 18:19 Your own Physician is Referral Physician. br1 18:49 Discontinued IV lock intact, bleeding controlled, pressure dressing applied, No jo3 redness/swelling at site. No procedures done that require assistance. 19:02 ECG WITH READING ER PHYS Returned. EDMS 0216 12:16 T-Sheet-- Draft Copy was scanned into [employer] and attached to record. gb 12:16 ECG/EKG was scanned into [employer] and attached to record. gb 12:16 Radiology Report was scanned into [employer] and attached to record. gb Administered Medications: 10/07 11:55 Drug: Aspirin 324 mg [aspirin 81 mg chewable tablet (4 tabs)] Route: PO; jo3 11:55 Drug: Nitrostat 0.4 mg [Nitrostat 0.4 mg sublingual tablet (1 tabs)] Route: Sublingual; jo3 12:01 Follow up: Pain 7/10 Adult; Response: Pain is unchanged, physician notified jo3 12:02 Drug: Nitrostat 0.4 mg [Nitrostat 0.4 mg sublingual tablet (1 tabs)] Route: Sublingual; jo3 12:08 Drug: Nitrostat 0.4 mg [Nitrostat 0.4 mg sublingual tablet (1 tabs)] Route: Sublingual; jo3 Order Results: Lab Order: Basic Metabolic Profile; SPEC'M 10/07/16 10:34 Test: GLUCOSE, FASTING; Value: 103; Range: 70-105; Units: MG/DL; Status: F Test: BLOOD UREA NITROGEN; Value: 7; Range: 7-18; Units: MG/DL; Status: F Test: CREATININE FOR GFR; Value: 0.92; Range: 0.55-1.02; Units: MG/DL; Status: F Test: GLOMERULAR FILTRATION RATE; Value: > 60.0; Range: >51; Status: F Test: SODIUM LEVEL; Value: 141; Range: 136-145; Units: MEQ/L; Status: F Test: POTASSIUM SERUM; Value: 4.6; Range: 3.5-5.1; Units: MEQ/L; Status: F Test: CHLORIDE LEVEL; Value: 104; Range: 98-107; Units: MEQ/L; Status: F Test: CARBON DIOXIDE LEVEL; Value: 30; Range: 21-32; Units: MEQ/L; Status: F Test: ANION GAP; Value: 7; Range: 8-16; Abnormal: Below low normal; Units: MEQ/L; Status: F Test: CALCIUM LEVEL; Value: 8.8; Range: 8.5-10.1; Units: MG/DL; Status: F Test Note: ; Units are mL/min/1.73 m2 Chronic Kidney Disease Staging per NKF: Stage I & II GFR >=60 Normal to Mildly Decreased Stage III GFR 30-59 Moderately Decreased Stage IV GFR 15-29 Severely Decreased Stage V GFR <15 Very Little GFR Left ESRD GFR <15 on INSPECTOR SCREEN PRINTING Lab Order: CBC with Diff; SPEC'10/07/16 10:34 Test: WHITE BLOOD COUNT; Value: 8.5; Range: 4.0-10.0; Units: K/mm3; Status: F Test: RED BLOOD COUNT; Value: 4.27; Range: 4.00-5.40; Units: M/mm3; Status: F Test: HEMOGLOBIN; Value: 12.6; Range: 12.0-16.0; Units: g/dl; Status: F Test: HEMATOCRIT; Value: 37.6; Range: 36.0-47.0; Units: %; Status: F Test: MEAN CORPUSCULAR VOLUME; Value: 88.1; Range: 80.0-96.0; Units: fl; Status: F Test: MEAN CORPUSCULAR HEMOGLOBIN; Value: 29.6; Range: 27.0-33.0; Units: pg; Status: F Test: MEAN CORPUSCULAR HGB CONC; Value: 33.6; Range: 32.0-36.5; Units: g/dl; Status: F Test: RED CELL DISTRIBUTION WIDTH; Value: 13.4; Range: 11.5-14.5; Units: %; Status: F Test: PLATELET COUNT, AUTOMATED; Value: 280; Range: 150-450; Units: k/mm3; Status: F Test: NEUTROPHILS %; Value: 59.4; Range: 36.0-66.0; Units: %; Status: F Test: LYMPH %; Value: 29.1; Range: 24.0-44.0; Units: %; Status: F Test: MONO %; Value: 5.3; Range: 0.0-5.0; Abnormal: Above high normal; Units: %; Status: F Test: EOS %; Value: 3.4; Range: 0.0-3.0; Abnormal: Above high normal; Units: %; Status: F Test: BASO %; Value: 0.7; Range: 0.0-1.0; Units: %; Status: F Test: LARGE UNSTAINED CELL %; Value: 2.1; Range: 0.0-4.0; Units: %; Status: F Test: NEUTROPHILS #; Value: 5.0; Range: 1.8-7.7; Units: K/mm3; Status: F Test: LYMPH #; Value: 2.6; Range: 1.5-4.5; Units: K/mm3; Status: F Test: MONO #; Value: 0.5; Range: 0.0-0.8; Units: K/mm3; Status: F Test: EOS #; Value: 0.3; Range: 0.0-0.50; Units: K/mm3; Status: F Test: BASO #; Value: 0.1; Range: 0.0-0.2; Units: K/mm3; Status: F Test: LARGE UNSTAINED CELL #; Value: 0.2; Range: 0.0-0.4; Units: K/mm3; Status: F Lab Order: Cardiac Injury Profile; [facility] 10/07/16 10:34 Test: CPK CREATINE PHOSPHOKINASE; Value: 41; Range: 26-192; Units: U/L; Status: F Test: CK-MB VALUE MASS; Value: 1.0; Range: 0.0-3.6; Units: NG/ML; Status: F Test: MB/CK RELATIVE INDEX; Value: 2.43; Range: < OR =4; Status: F Test Note: ; DIAGNOSIS CRITERIA MMB ng/ml Relative Index (RI) NON-AMI < or = 5 N/A ALLEN ZONE > 5 < or = 4 AMI > 5 > 4 Lab Order: Troponin; [facility] 10/07/16 10:34 Test: TROPONIN I; Value: < 0.02; Range: < 0.10; Units: NG/ML; Status: F Test Note: ; Troponin I Reference Interval for ZetrOZ LOCI: 99th Percentile= 0.00-0.045 ng/ml Risk Stratification: <= 0.10 ng/ml Decreased Risk for Adverse Clinical Events. 0.10-1.50 ng/ml Increased Risk for Adverse Clinical Events. Evaluation of additional criterion and/or repeat testing in 2-6 hours is suggested to rule out myocardial damage. >= 1.50 ng/ml Indicative of Myocardial Injury. Lab Order: Fingerstick Blood Sugar; [facility] 10/07/16 14:40 Test: BEDSIDE GLUCOSE; Value: 91; Range: 70-105; Units: MG/DL; Status: F Lab Order: CARDIAC MARKER PANEL; [facility] 10/07/16 16:07 Test: CPK CREATINE PHOSPHOKINASE; Value: 79; Range: 26-192; Abnormal: Delta; Units: U/L; Status: F Test: CK-MB VALUE MASS; Value: 1.0; Range: 0.0-3.6; Units: NG/ML; Status: F Test: MB/CK RELATIVE INDEX; Value: 1.26; Range: < OR =4; Status: F Test: TROPONIN I; Value: < 0.02; Range: < 0.10; Units: NG/ML; Status: F Test Note: ; DIAGNOSIS CRITERIA MMB ng/ml Relative Index (RI) NON-AMI < or = 5 N/A ALLEN ZONE > 5 < or = 4 AMI > 5 > 4 Radiology Order: EKG-ADULT Test: EKG-ADULT REASON FOR EXAMINATION: Chest Pain; Stationary ECG Study; [facility] - ED; ; Test Date: 2016-10-07; Pat Name: JENNIFER WARREN Department:; Room: -; Gender: F Pillow Cleaner: NASREEN; : 1965 Requested By: TANNER Dorman; Order Number: [id number] Reading MD: Andrew Sands; Measurements; Intervals [place]; Rate: 74 P: 28; PA: 208 QRS: 33; QRSD: 105 T: -25; QT: 401; QTc: 447; Interpretive Statements; SINUS RHYTHM, BORDERLINE FIRST DEGREE AV BLOCK; NONSPECIFIC INFERIOR T WAVE ABNORMALITIES; SIMILAR TO 09/01/12; Electronically Signed On 10-07-2016 12:25:23 EST by Andrew Sands; Radiology Order: Chest, 1 View Test: Chest, 1 View REASON FOR EXAMINATION: Chest Pain; Chest one-view; ; HISTORY: chest pain; ; Comparison: None; ; The lungs are clear. The heart is normal in size. The pulmonary vasculature is; normal in appearance.; ; Impression: No acute disease.; ; ; Signed by; Bryan Dean MD 10/07/2016 10:42 A; Radiology Order: CT Chest Angio R/O PE Test: CT Chest Angio R/O PE REASON FOR EXAMINATION: Chest Pain;Shortness of Breath; Clinical: Acute chest pain and shortness of breath.; ; Technique: Axial contrast enhanced images from the thoracic inlet to the upper; abdomen using 100 ml Isovue 370 intravenous contrast material with coronal and; sagittal re-formations.; ; Findings: Satisfactory enhancement of the pulmonary vasculature is achieved and; no filling defects are identified to suggest pulmonary embolus. Thoracic aorta; is normal caliber without aneurysm or dissection. Heart and pericardium are; unremarkable. Bilateral lung ponce are clear without acute pulmonary; parenchymal consolidation or atelectasis. No nodule or mass lesion. No pleural; effusion/reaction. No pneumothorax. No adenopathy.; ; Impression:; No evidence for pulmonary embolus.; No acute pleuroparenchymal or mediastinal process.; ; ; Signed by; Jay Ramirez MD 10/07/2016 01:08 P; Radiology Order: ECG WITH READING ER PHYS Test: ECG WITH READING ER PHYS REASON FOR EXAMINATION: CHEST PAIN(REPEAT EKG AT 4P); Stationary ECG Study; [facility] - ED; ; Test Date: 2016-10-07; Pat Name: JENNIFER WARREN Department:; Room: -; Gender: F Pillow Cleaner: NASREEN; : 1965 Requested By: TANNER Dorman; Order Number: [id number] Reading MD: Andrew Sands; Measurements; Intervals [place]; Rate: 65 P: 22; PA: 221 QRS: 19; QRSD: 106 T: -47; QT: 426; QTc: 445; Interpretive Statements; SINUS RHYTHM WITH FIRST DEGREE AV BLOCK; MODERATE T-WAVE ABNORMALITY, CONSIDER INFERIOR ISCHEMIA; SIMILAR TO 10/07/16; Electronically Signed On 10-07-2016 18:23:38 EST by Andrew Sands; Outcome: 18:20 Discharge ordered by Provider. br1 18:49 Discharge Assessment: Patient awake, alert and oriented x 3. No cognitive and/or jo3 functional deficits noted. Patient verbalized understanding of disposition instructions. patient administered narcotics - no. The following High Risk Discharge criteria are identified: None. Discharged to home ambulatory, with family. Condition: stable Condition: improved. Discharge instructions given to patient, Instructed on discharge instructions, follow up and referral plans. Demonstrated understanding of instructions, Pt was receptive of discharge instructions/ teaching. CT Study completed. Property sent home with patient. 18:56 Patient left the ED. jo3 Signatures: Dispatcher [employer] EDKely Felton, Reg Reg Clarence Kraft RN RN mlb1 Jaycee PonceRN RN jo3 Tanner Burnette MD MD br1 Isaiah Sexton Marlynn mm15 Mika Hebert PCA PCA jrd Ross, Laura lr2 Chart Complete MTDD
--- NOTE | 2016-10-09 19:57 | EDDOCDS ---
Physician Documentation [facility] Name: Yuliya Jacob Age: 50 yrs Sex: Female : 1965 Arrival Date: 10/07/2016 Time: 09:49 Bed 14 Private MD: Disposition: 10/07/16 18:20 Discharged to Home/Self Care. Impression: Chest pain, unspecified. - Condition is Stable. - Discharge Instructions: Nonspecific Chest Pain. - Medication Reconciliation, Local Pharmacy Hours form. - Follow up: [facility] - Adults; When: 1 - 2 days; Reason: Recheck today's complaints. Follow up: Your own Physician; When: 2 - 3 days; Reason: Recheck today's complaints. - Problem is new. - Symptoms are resolved. - Notes: You were seen in the ED for chest pain. Bloodwork along with EKG of the heart, chest Xray, and CT scan of the chest showed no acute findings. We have consulted with your [place] group as well who has recommended you may return home to follow up with your primary doctor and with them in the office. Please call these two offices today to make these appointments. Return to the ED for any chest pain, trouble breathing, lightheadedness, loss of consciousness or any other concerns. Historical: - Allergies: Ultram; Codeine Sulfate; Percocet; - Home Meds: 1. Zoloft 100 mg Oral tab 1 tab once daily (Last dose: 10/06/2016 20:00) 2. Zyrtec 10 mg Oral tab 1 tab once daily (Last dose: 10/06/2016 20:00) 3. Singulair 10 mg Oral tab 1 tab once daily 4. Requip 2 mg Oral tab 1 tab Daily (Last dose: 10/06/2016 20:00) 5. gabapentin 300 mg Oral Tb24 1 cap in afternoon and 2 caps in ronnie (Last dose: 10/06/2016 20:00) 6. Vitamin B-12 1,000 mcg Oral tab (Last dose: 10/06/2016 07:00) 7. multivitamin Oral tab daily (Last dose: 10/06/2016 08:00) 8. Vitamin D Oral 5000 unit (Last dose: 10/06/2016 07:00) - PMHx: restless leg; Asthma; diabetic neuropathy; Diabetes - NIDDM: controllednot medicated since gastric bypass; aortic stenosis; mitral valve issue (unknown); - PSHx: Appendectomy; Hysterectomy; Adenoidectomy; Repair aortic stenosis; Tonsillectomy; Cholecystectomy; ; Gastric Bypass; cardiac cath; - Social history: Smoking status: Patient states former smoker of tobacco. No barriers to communication noted, The patient speaks fluent Czech, Speaks appropriately for age. - Family history: Not pertinent. - : The pt / caregiver states he / she is not on anticoagulants. Home medication list is obtained from the patient. - Exposure Risk Screening:: None identified. 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 3 in. (160.02 cm); Pain 9/10; 10:14 BP 133 / 62 (auto/); jo3 10:14 Pulse 68 MON; Pulse Ox 100% ; jo3 10:32 BP 119 / 65 (auto/); jo3 10:32 Pulse 70 MON; jo3 10:44 BP 104 / 56 (auto/); jo3 10:44 Pulse 66 MON; Pulse Ox 98% ; jo3 11:28 Temp 98.2(O); jo3 11:53 BP 120 / 89 (auto/); jo3 11:53 Pulse 68 MON; Pulse Ox 98% ; jo3 12:00 BP 116 / 60 (auto/); jo3 12:00 Pulse 76 MON; Pulse Ox 97% ; jo3 12:01 Pain 7/10; jo3 12:10 BP 115 / 57 (auto/); jo3 12:10 Pulse 78 MON; Pulse Ox 96% ; jo3 12:17 BP 103 / 55 (auto/); jo3 12:17 Pulse 78 MON; Pulse Ox 96% ; jo3 13:00 Pulse 68 MON; Pulse Ox 99% ; jo3 13:30 Pulse 68 MON; Pulse Ox 99% ; jo3 13:45 Pulse 70 MON; Pulse Ox 98% ; jo3 14:00 Pulse 68 MON; Pulse Ox 98% ; jo3 14:15 Pulse 66 MON; Pulse Ox 99% ; jo3 14:19 BP 121 / 65 (auto/); jo3 14:19 Pulse 64 MON; Pulse Ox 99% ; jo3 14:45 Pulse 64 MON; Pulse Ox 99% ; jo3 16:06 BP 130 / 59 (auto/); jo3 16:06 Pulse 66 MON; jo3 17:00 BP 120 / 60; Pulse 66 MON; jo3 18:00 BP 127 / 60 (auto/); jo3 18:01 Pulse 68 MON; jo3 18:25 BP 135 / 80; Pulse 72; Resp 17; Temp 97.3(O); Pulse Ox 98% on R/A; lr2 09:50 Body Mass Index 45.70 (117.03 kg, 160.02 cm) jrd MDM: 09:54 ECG WITH READING ER PHYS+CARDIAG ordered. EDMS 10:03 Sectionizer/Pulse Ox/q 30 min VS ordered. br1 10:03 IV Saline Lock ordered. br1 10:03 Rhythm Strip to chart ordered. br1 10:03 Undress patient appropriately for examination ordered. br1 10:03 Basic Metabolic Profile Ordered. EDMS 10:03 CBC with Diff Ordered. EDMS 10:03 Cardiac Injury Profile Ordered. EDMS 10:03 Troponin Ordered. EDMS 10:13 Chest, 1 View Ordered. EDMS 11:35 Aspirin 324 mg PO once ordered. br1 11:35 Nitrostat 0.4 mg Sublingual every 5 minutes; hold if SBP<90mmHg.Document Pain Score br1 Response to Each Dose x3 ordered. 11:37 CT Chest Angio R/O PE Ordered. EDMS 11:41 Financial registration complete. mm15 11:44 [facility] Payment Agreement was scanned into [employer] (formerly [employer]) and attached to record. mm15 14:29 Basic Metabolic Profile Reviewed. br1 14:29 CBC with Diff Reviewed. br1 14:29 Cardiac Injury Profile Reviewed. br1 14:29 Troponin Reviewed. br1 14:29 EKG-ADULT Reviewed. br1 14:29 Chest, 1 View Reviewed. br1 14:29 CT Chest Angio R/O PE Reviewed. br1 14:37 Repeat EKG (put time details section) ordered. br1 14:37 Redraw CIP &Troponin (put time in details section) ordered. br1 14:37 Admit to ED Observation status ordered. br1 14:49 REGULAR+DIET ordered. EDMS 14:50 Fingerstick Blood Sugar Ordered. EDMS 14:58 Repeat EKG (put time details section) complete. lbd 14:58 Redraw CIP &Troponin (put time in details section) complete. lbd 14:58 Admit to ED Observation status complete. lbd 15:02 ECG WITH READING ER PHYS ordered. EDMS 15:03 CARDIAC MARKER PANEL Ordered. EDMS 18:05 CARDIAC MARKER PANEL Reviewed. br1 18:05 Fingerstick Blood Sugar Reviewed. br1 10/08 12:16 T-Sheet-- Draft Copy was scanned into [employer] (formerly [employer]) and attached to record. gb 12:16 ECG/EKG was scanned into [employer] (formerly [employer]) and attached to record. gb 12:16 Radiology Report was scanned into [employer] (formerly [employer]) and attached to record. gb Administered Medications: 10/07 11:55 Drug: Aspirin 324 mg [aspirin 81 mg chewable tablet (4 tabs)] Route: PO; jo3 11:55 Drug: Nitrostat 0.4 mg [Nitrostat 0.4 mg sublingual tablet (1 tabs)] Route: Sublingual; jo3 12:01 Follow up: Pain 03/01 Adult; Response: Pain is unchanged, physician notified jo3 12:02 Drug: Nitrostat 0.4 mg [Nitrostat 0.4 mg sublingual tablet (1 tabs)] Route: Sublingual; jo3 12:08 Drug: Nitrostat 0.4 mg [Nitrostat 0.4 mg sublingual tablet (1 tabs)] Route: Sublingual; jo3 Signatures: Dispatcher [employer] EDMS Laurel Broderick, Route Aide Unit lbd Kely Salazar, Reg Reg gb Jaycee Ponce RN RN jo3 Tanner Burnette MD MD br1 aMgy Murillo mm15 The chart was reviewed and I authenticate all verbal orders and agree with the evaluation and treatment provided.Attachments: 11:44 [facility] Payment Agreement mm15 10/08 12:16 T-Sheet-- Draft Copy gb 12:16 ECG/EKG gb Chart Complete MTDD
== END 2016-10-07 18:56 | disposition home or self-care (01) ==
LOC: M ED 09:49
DX: R07.9 Chest pain, unspecified (principal); G25.81 Restless legs syndrome; J45.909 Unspecified asthma, uncomplicated; E11.40 Type 2 diabetes mellitus with diabetic neuropathy, unspecified; Z98.84 Bariatric surgery status; I35.0 Nonrheumatic aortic (valve) stenosis; I34.0 Nonrheumatic mitral (valve) insufficiency; Z87.891 Personal history of nicotine dependence; Z79.899 Other long term (current) drug therapy; Z88.5 Allergy status to narcotic agent
CPT/HCPCS: 36415; 71010; 71275; 80048; 82550; 82553; 84484; 85025; 93005; 93041; 99285; Q9967

== ENCOUNTER → 2016-12-11 | Outpatient (CLI) | payer MEDICARE, MEDICAID ==
[2016-12-11 15:04] LABS: BASO % 0.7 % (0.0-1.0); EOS # 0.2 K/mm3 (0.0-0.50); EOS % 3.4 % (0.0-3.0); LARGE UNSTAINED CELL # 0.1 K/mm3 (0.0-0.4); LARGE UNSTAINED CELL % 1.6 % (0.0-4.0); LYMPH # 1.7 K/mm3 (1.5-4.5); MEAN CORPUSCULAR HGB CONC 32.9 g/dl (32.0-36.5); MEAN CORPUSCULAR VOLUME 88.3 fl (80.0-96.0); MONO # 0.3 K/mm3 (0.0-0.8); MONO % 5.2 % (0.0-5.0); NEUTROPHILS # 3.7 K/mm3 (1.8-7.7); NEUTROPHILS % 62.1 % (36.0-66.0); PLATELET COUNT, AUTOMATED 271 k/mm3 (150-450); RED CELL DISTRIBUTION WIDTH 13.1 % (11.5-14.5); WHITE BLOOD COUNT 5.9 K/mm3 (4.0-10.0)
[2016-12-11 15:42] LABS: ALBUMIN 3.6 GM/DL (3.2-5.2); ALKALINE PHOSPHATASE 70 U/L (45-117); ALT/SGPT 29 U/L (12-78); ANION GAP 8 MEQ/L (8-16); AST/SGOT 26 U/L (15-37); BILIRUBIN,TOTAL 0.5 MG/DL (0.2-1.0); BLOOD UREA NITROGEN 8 MG/DL (7-18); CALCIUM LEVEL 8.7 MG/DL (8.5-10.1); CARBON DIOXIDE LEVEL 27 MEQ/L (21-32); CHLORIDE LEVEL 107 MEQ/L (98-107); CREATININE FOR GFR 0.82 MG/DL (0.55-1.02); FERRITIN 28 NG/ML (8-252); GLOMERULAR FILTRATION RATE > 60.0 (>51); GLUCOSE, FASTING 95 MG/DL (70-105); MAGNESIUM LEVEL 2.4 MG/DL (1.8-2.4); PERCENT SATURATION 20.4 % (13.2-37.4); PHOSPHORUS LEVEL 3.4 MG/DL (2.5-4.9); POTASSIUM SERUM 4.3 MEQ/L (3.5-5.1); SODIUM LEVEL 142 MEQ/L (136-145); TOTAL IRON BINDING CAPACITY 373 UG/DL (250-450); TOTAL PROTEIN 7.2 GM/DL (6.4-8.2)
[2016-12-11 15:52] LABS: VITAMIN B12 LEVEL 328 PG/ML (247-911)
== END ==
LOC: M LAB 14:22
PROVIDERS: ATTEND Surgery
DX: K91.2 Postsurgical malabsorption, not elsewhere classified (principal); Z98.84 Bariatric surgery status; E55.9 Vitamin D deficiency, unspecified

== ENCOUNTER → 2017-01-30 | Outpatient (REF) | payer MEDICARE, MEDICAID | LOC: M LAB REF 09:22 | PROVIDERS: ATTEND Physician Assistant | DX: R30.0 Dysuria (principal) ==

== ENCOUNTER → 2017-02-12 | Outpatient (REF) | payer MEDICARE, MEDICAID | LOC: M LAB REF 16:38 | PROVIDERS: ATTEND Physician Assistant | DX: N39.9 Disorder of urinary system, unspecified (principal); Z79.899 Other long term (current) drug therapy ==

== ENCOUNTER 2017-04-02 14:16 | Emergency (ER) | payer MEDICARE, MEDICAID ==
[~2017-04-02] VITALS: Ht 172.7 cm; Wt 113.6 kg
[2017-04-02] MEDS ORDERED: TRAZ-136 PO (14:28)
[2017-04-02] MEDS ORDERED: CLON0.5T PO (14:28)
[2017-04-02] MEDS ORDERED: NEUR300C PO (14:28)
[2017-04-02] MEDS ORDERED: BREO1INH INH (14:28)
[2017-04-02] MEDS ORDERED: SIMV40TA2 PO (14:28)
[2017-04-02] MEDS ORDERED: ZOLO100T PO (14:28)
[2017-04-02] MEDS ORDERED: PROAAER10 INH (14:28)
[2017-04-02] MEDS ORDERED: diphenhydrAMINE INJ 50MG/ML VIAL (J1200) IV STA (15:27)
[2017-04-02] MEDS ORDERED: methylPREDNISolone INJ 125 MG/2 ML VIAL (J2930) IV ONE (15:30)
[2017-04-02] MEDS ORDERED: FAMOTIDINE INJ 20MG/2ML VIAL (S0028) IVP ONE (15:30)
[2017-04-02 15:41] LABS: BASO % 0.2 % (0.0-1.0); EOS # 0.1 K/mm3 (0.0-0.50); EOS % 0.9 % (0.0-3.0); LARGE UNSTAINED CELL # 0.1 K/mm3 (0.0-0.4); LARGE UNSTAINED CELL % 0.8 % (0.0-4.0); LYMPH # 1.6 K/mm3 (1.5-4.5); LYMPH % 18.4 % (24.0-44.0); MEAN CORPUSCULAR HEMOGLOBIN 29.6 pg (27.0-33.0); MEAN CORPUSCULAR HGB CONC 33.4 g/dl (32.0-36.5); MEAN CORPUSCULAR VOLUME 88.7 fl (80.0-96.0); MONO # 0.3 K/mm3 (0.0-0.8); MONO % 4.2 % (0.0-5.0); NEUTROPHILS # 6.2 K/mm3 (1.8-7.7); NEUTROPHILS % 75.5 % (36.0-66.0); PLATELET COUNT, AUTOMATED 246 k/mm3 (150-450); RED CELL DISTRIBUTION WIDTH 13.5 % (11.5-14.5); WHITE BLOOD COUNT 8.2 K/mm3 (4.0-10.0)
[2017-04-02 15:59] LABS: ANION GAP 7 MEQ/L (8-16); BLOOD UREA NITROGEN 7 MG/DL (7-18); CALCIUM LEVEL 8.9 MG/DL (8.5-10.1); CARBON DIOXIDE LEVEL 26 MEQ/L (21-32); CHLORIDE LEVEL 107 MEQ/L (98-107); CREATININE FOR GFR 1.16 MG/DL (0.55-1.02); GLUCOSE, FASTING 110 MG/DL (70-105); POTASSIUM SERUM 3.5 MEQ/L (3.5-5.1); SODIUM LEVEL 140 MEQ/L (136-145)
--- NOTE | 2017-04-02 15:59 | REP ---
Chest two views HISTORY: Allergic reaction Comparison: 10/07/2016 The lungs are clear. The heart is normal in size. The pulmonary vasculature is normal in appearance. The bony structure is intact. IMPRESSION: No acute disease. Signed by Bryan Dean MD 04/02/2017 03:50 P
[2017-04-02] MEDS ORDERED: ACETAMINOPHEN TAB 650MG DOSE (2X325MG) PO ONE (16:45)
[2017-04-02] MEDS ORDERED: MACR100C43 PO (17:54)
[2017-04-02 18:04] VITALS: BP 119/56
--- NOTE | 2017-04-02 19:59 | ECGEPIP ---
Stationary ECG Study [facility] - ED Test Date: 2017-04-02 Pat Name: JENNIFER WARREN Department: Room: - Gender: F Disability Coordinator: paige : 1965 Requested By: GOLDY Dorman Order Number: [id number] Reading MD: Dov Hernandez Measurements Intervals [place] Rate: 60 P: -1 ND: 211 QRS: 9 QRSD: 106 T: -44 QT: 442 QTc: 444 Interpretive Statements SINUS RHYTHM WITH FIRST DEGREE AV BLOCK ST DEVIATION AND MODERATE T-WAVE ABNORMALITY, CONSIDER INFERIOR ISCHEMIA CW 10/07/16 RATE DECREASED Electronically Signed On 04-02-2017 19:58:56 EDT by Dov Hernandez
== END 2017-04-02 18:16 | disposition home or self-care (01) ==
LOC: M ED 14:16
DX: T78.40XA Allergy, unspecified, initial encounter (principal); X58.XXXA Exposure to other specified factors, initial encounter; Y92.89 Other specified places as the place of occurrence of the external cause; Y99.8 Other external cause status; R21 Rash and other nonspecific skin eruption; N39.0 Urinary tract infection, site not specified; J45.909 Unspecified asthma, uncomplicated; I10 Essential (primary) hypertension; E11.9 Type 2 diabetes mellitus without complications; E78.9 Disorder of lipoprotein metabolism, unspecified; Q68.8 Other specified congenital musculoskeletal deformities; R94.31 Abnormal electrocardiogram [ECG] [EKG]; Z98.0 Intestinal bypass and anastomosis status; Z79.899 Other long term (current) drug therapy; Z79.51 Long term (current) use of inhaled steroids; Z88.5 Allergy status to narcotic agent
CPT/HCPCS: 71020; 80048; 82550; 82553; 84484; 85025; 93005; 93041; 94760; 96374; 96375; 99285; J1200; J2930

== ENCOUNTER → 2017-05-24 | Outpatient (CLI) | payer MEDICARE, MEDICAID ==
[~2017-05-24] MED LIST: BREO1INH INH; CLON0.5T PO; MACR100C43 PO; NEUR300C PO; PROAAER10 INH; SIMV40TA2 PO; TRAZ-136 PO; ZOLO100T PO
[2017-05-24 09:48] LABS: BASO # 0.1 10^3/uL (0.0-0.2); BASO % 0.6 % (0.0-1.0); EOS # 0.2 10^3/uL (0.0-0.50); EOS % 2.3 % (0.0-3.0); IMMATURE GRANULOCYTE % 0.3 % (0-0); LYMPH # 2.4 10^3/uL (1.5-4.5); LYMPH % 30.6 % (24.0-44.0); MEAN CORPUSCULAR HEMOGLOBIN 28.4 pg (27.0-33.0); MEAN CORPUSCULAR HGB CONC 32.4 g/dl (32.0-36.5); MEAN CORPUSCULAR VOLUME 87.6 fl (80.0-96.0); MONO # 0.5 10^3/uL (0.0-0.8); MONO % 5.9 % (0.0-5.0); NEUTROPHILS # 4.7 10^3/uL (1.8-7.7); NEUTROPHILS % 60.3 % (36.0-66.0); PLATELET COUNT, AUTOMATED 266 10^3/uL (150-450); RED CELL DISTRIBUTION WIDTH 13.2 % (11.5-14.5); WHITE BLOOD COUNT 7.7 10^3/uL (4.0-10.0)
[2017-05-24 09:50] LABS: ADD MANUAL DIFFER NO; DIFF SLIDE NUMBER 144
[2017-05-24 10:39] LABS: ALBUMIN 3.6 GM/DL (3.2-5.2); ALBUMIN/GLOBULIN RATIO 0.97 (1.00-1.93); ALKALINE PHOSPHATASE 72 U/L (45-117); ALT/SGPT 42 U/L (12-78); ANION GAP 8 MEQ/L (8-16); AST/SGOT 31 U/L (15-37); BILIRUBIN,TOTAL 0.5 MG/DL (0.2-1.0); BLOOD UREA NITROGEN 6 MG/DL (7-18); CALCIUM LEVEL 8.4 MG/DL (8.5-10.1); CARBON DIOXIDE LEVEL 27 MEQ/L (21-32); CHLORIDE LEVEL 106 MEQ/L (98-107); CHOLESTEROL LEVEL 207 MG/DL (<200); CREATININE FOR GFR 0.86 MG/DL (0.55-1.02); FREE T4 0.96 NG/DL (0.76-1.46); GLOMERULAR FILTRATION RATE > 60.0 (>51); GLUCOSE, FASTING 94 MG/DL (70-105); POTASSIUM SERUM 4.1 MEQ/L (3.5-5.1); SODIUM LEVEL 141 MEQ/L (136-145); TOTAL PROTEIN 7.3 GM/DL (6.4-8.2); TRIGLYCERIDES LEVEL 193 MG/DL (<150)
== END ==
LOC: M LAB 09:24
PROVIDERS: ATTEND Nurse Practitioner Adult Health
DX: E55.9 Vitamin D deficiency, unspecified (principal); Z79.899 Other long term (current) drug therapy; E11.65 Type 2 diabetes mellitus with hyperglycemia; E78.5 Hyperlipidemia, unspecified

== ENCOUNTER 2017-07-31 19:49 | Emergency (ER) | payer MEDICARE, MEDICAID ==
[~2017-07-31] VITALS: Ht 172.7 cm; Wt 118.2 kg
[2017-07-31] MEDS ORDERED: ESTR1CRE (20:01)
[2017-07-31] MEDS ORDERED: PANT40TA2 (20:01)
[2017-07-31] MEDS ORDERED: MONT10TA2 (20:01)
[2017-07-31] MEDS ORDERED: ROPI2TAB (20:01)
[2017-07-31 20:30] LABS: BASO # 0.1 10^3/uL (0.0-0.2); BASO % 0.3 % (0.0-1.0); EOS # 0.2 10^3/uL (0.0-0.50); EOS % 1.1 % (0.0-3.0); IMMATURE GRANULOCYTE % 0.4 % (0-0); LYMPH # 2.2 10^3/uL (1.5-4.5); LYMPH % 14.5 % (24.0-44.0); MEAN CORPUSCULAR HGB CONC 33.4 g/dl (32.0-36.5); MEAN CORPUSCULAR VOLUME 86.7 fl (80.0-96.0); MONO # 0.8 10^3/uL (0.0-0.8); MONO % 5.1 % (0.0-5.0); NEUTROPHILS # 12.1 10^3/uL (1.8-7.7); NEUTROPHILS % 78.6 % (36.0-66.0); PLATELET COUNT, AUTOMATED 323 10^3/uL (150-450); RED CELL DISTRIBUTION WIDTH 13.2 % (11.5-14.5); WHITE BLOOD COUNT 15.4 10^3/uL (4.0-10.0)
[2017-07-31] MEDS ORDERED: PANTOPRAZOLE 40MG INJ (PROTONIX) (C9113) IV ONE (20:30)
[2017-07-31] MEDS ORDERED: GI COCKTAIL 50ML BTL(HYOSCYAMINE/MAALOX/LIDOCAINE VISCOUS)(1:3:1) PO ONE (20:30)
[2017-07-31] MEDS ORDERED: GASTROGRAFIN SOLUTION 30ML PO ONE (20:45)
[2017-07-31 20:47] LABS: ALBUMIN 3.9 GM/DL (3.2-5.2); ALBUMIN/GLOBULIN RATIO 0.98 (1.00-1.93); ALKALINE PHOSPHATASE 76 U/L (45-117); ALT/SGPT 41 U/L (12-78); ANION GAP 9 MEQ/L (8-16); AST/SGOT 42 U/L (7-37); BILIRUBIN,DIRECT 0.2 MG/DL (0.0-0.2); BILIRUBIN,TOTAL 0.8 MG/DL (0.2-1.0); BLOOD UREA NITROGEN 7 MG/DL (7-18); CALCIUM LEVEL 9.2 MG/DL (8.5-10.1); CARBON DIOXIDE LEVEL 25 MEQ/L (21-32); CHLORIDE LEVEL 105 MEQ/L (98-107); CREATININE FOR GFR 0.88 MG/DL (0.55-1.02); GLOMERULAR FILTRATION RATE > 60.0 (>51); GLUCOSE, FASTING 113 MG/DL (70-105); POTASSIUM SERUM 3.9 MEQ/L (3.5-5.1); SODIUM LEVEL 139 MEQ/L (136-145); TOTAL PROTEIN 7.9 GM/DL (6.4-8.2)
[2017-07-31] MEDS ORDERED: GASTROGRAFIN SOLUTION 30ML (Q9963) PO ONE (21:15)
[2017-07-31] MEDS ORDERED: MORPHINE 4 MG/ML 1ML SYRINGE IV ONE (21:45)
[2017-07-31] MEDS ORDERED: ASPIRIN 325 MG TAB PO ONE (21:45)
[2017-07-31] MEDS ORDERED: ONDANSETRON 4MG/2ML VIAL (J2405) IV ONE (22:00)
[2017-07-31] MEDS ORDERED: ONDANSETRON 4MG/2ML VIAL (J2405) As Ordered ONE (22:01)
[2017-07-31] MEDS ORDERED: ISOVUE-370 76% 100ML VIAL (Q9967) As Ordered ONE (22:02)
--- NOTE | 2017-07-31 23:20 | REPUSA ---
CT angiogram of the chest Clinical statement: Chest pain and shortness of breath. Technique: Multiple axial CT images were obtained from the thoracic inlet through the upper abdomen a fter a bolus administration of nonionic intravenous contrast. Coronal and sagittal reconstructions we re also obtained. No comparison is available. Findings: The pulmonary arteries are well-opacified with contrast, with no intraluminal filling defec ts to suggest embolism. The thoracic aorta is unremarkable. Thyroid gland is within normal limits. Th ere is no thoracic lymphadenopathy. There are no pericardial or pleural effusions. The lungs are sandee r. Limited imaging of the upper abdomen demonstrates a small hiatal hernia. There are no suspicious o sseous lesions. Impression: 1. No evidence of pulmonary embolism. 2. No acute infiltrates. 3. Small hiatal hernia.
--- NOTE | 2017-07-31 23:20 | REPUSA ---
CT of the abdomen and pelvis with contrast Clinical statement: Pain. Technique: Multiple axial CT images were obtained from the base of the lungs through the floor of the pelvis utilizing 5 mm axial slices after administration of oral and nonionic intravenous contrast. C oronal and sagittal reconstructions were also obtained. Comparison: 07/31/2017. Findings: Chest: The visualized lung bases are clear. There is a small hiatal hernia. Abdomen: The liver, spleen, pancreas, kidneys, and adrenal glands are unremarkable. The aorta is with in normal limits. There is no evidence of abdominal lymphadenopathy or ascites. Pelvis: The bowel is unremarkable, with no obstructive or inflammatory changes. The urinary bladder i s within normal limits. The other pelvic structures appear grossly intact. There is no evidence of pe lvic lymphadenopathy or ascites. Bones: There are no suspicious osseous abnormalities seen. There is moderate degenerative disc diseas e at L4/L5. Impression: Unremarkable CT examination of the abdomen and pelvis.
[2017-07-31 23:48] VITALS: BP 138/79
--- NOTE | 2017-08-01 08:04 | ECGEPIP ---
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
== END 2017-08-01 00:23 | disposition home or self-care (01) ==
LOC: M ED 19:49
DX: R10.13 Epigastric pain (principal); Z85.528 Personal history of other malignant neoplasm of kidney; Z87.891 Personal history of nicotine dependence
CPT/HCPCS: 71275; 74177; 80048; 80076; 82550; 82553; 83690; 84484; 85025; 85610; 85730; 93005; 93041; 94760; 96374; 96375; 99284; C9113; J2405; Q9963; Q9967

== ENCOUNTER → 2017-08-25 | Outpatient (CLI) | payer MEDICARE, MEDICAID ==
[2017-08-25 15:03] LABS: BASO % 0.1 % (0.0-1.0); EOS % 0.1 % (0.0-3.0); IMMATURE GRANULOCYTE # 0.1 10^3/uL (0-0); IMMATURE GRANULOCYTE % 0.5 % (0-0); LYMPH # 1.8 10^3/uL (1.5-4.5); LYMPH % 12.7 % (24.0-44.0); MEAN CORPUSCULAR HEMOGLOBIN 29.1 pg (27.0-33.0); MEAN CORPUSCULAR HGB CONC 33.3 g/dl (32.0-36.5); MEAN CORPUSCULAR VOLUME 87.2 fl (80.0-96.0); MONO # 0.6 10^3/uL (0.0-0.8); MONO % 4.3 % (0.0-5.0); NEUTROPHILS # 11.7 10^3/uL (1.8-7.7); NEUTROPHILS % 82.3 % (36.0-66.0); PLATELET COUNT, AUTOMATED 325 10^3/uL (150-450); RED BLOOD COUNT 4.47 10^6/uL (4.00-5.40); WHITE BLOOD COUNT 14.3 10^3/uL (4.0-10.0)
[2017-08-25 15:19] LABS: ESTIMATED AVERAGE GLUCOSE 97 MG/DL (60-110)
[2017-08-25 15:24] LABS: ERYTHROCYTE SEDIMENTATION RATE 21 mm/hr (0-30)
[2017-08-25 15:30] LABS: ALBUMIN 4.1 GM/DL (3.2-5.2); ALBUMIN/GLOBULIN RATIO 1.17 (1.00-1.93); ALKALINE PHOSPHATASE 85 U/L (45-117); ALT/SGPT 29 U/L (12-78); ANION GAP 7 MEQ/L (8-16); AST/SGOT 26 U/L (7-37); BILIRUBIN,TOTAL 0.4 MG/DL (0.2-1.0); BLOOD UREA NITROGEN 15 MG/DL (7-18); CALCIUM LEVEL 8.7 MG/DL (8.5-10.1); CARBON DIOXIDE LEVEL 26 MEQ/L (21-32); CHLORIDE LEVEL 106 MEQ/L (98-107); CREATININE FOR GFR 0.96 MG/DL (0.55-1.02); GLOMERULAR FILTRATION RATE > 60.0 (>51); GLUCOSE, FASTING 103 MG/DL (70-105); POTASSIUM SERUM 4.1 MEQ/L (3.5-5.1); RHEUMATOID FACTOR QUANT < 10.0 IU/ML (0-15.0); SODIUM LEVEL 139 MEQ/L (136-145); TOTAL 25(OH) VITAMIN D 30.7 NG/ML (30.0-100.0); TOTAL PROTEIN 7.6 GM/DL (6.4-8.2); VITAMIN B12 LEVEL 361 PG/ML
[2017-08-25 15:32] LABS: FOLATE 7.3 NG/ML
[2017-08-26 11:51] LABS: ALBUMIN 4.35 GM/DL (3.29-5.55); ALBUMIN % 57.2 % (55.8-66.1); ALPHA-1-GLOBULIN % 4.2 % (2.9-4.9); ALPHA-1-GLOBULINS 0.32 GM/DL (0.17-0.41); ALPHA-2-GLOBULINS 0.87 GM/DL (0.42-0.99); ALPHA-2-GLOBULINS % 11.4 % (7.1-11.8); BETA-1-GLOBULINS % 6.6 % (4.7-7.2); BETA-2-GLOBULINS % 5.4 % (3.2-6.5); GAMMA GLOBULIN % 15.2 % (11.1-18.8)
[2017-08-26 11:52] LABS: BETA-2-GLOBULINS 0.41 GM/DL (0.19-0.55); GAMMA GLOBULINS 1.16 GM/DL (0.65-1.58)
[2017-08-31 09:33] LABS: DRVV SCREEN 39.1 SEC
[2017-08-31 09:37] LABS: PTT LUPUS TYPE ANTICOAG SCREEN 0.9 (0-1.2)
[2017-09-01 14:13] LABS: ANTINUCLEAR ANTIBODIES DIRECT Negative (Negative); VITAMIN B6,PYRIDOXAL PHOSPHATE 7.2 ug/L (2.0-32.8); VITAMIN E LEVEL 7.6 mg/L (5.3-16.8)
== END ==
LOC: M LAB 14:19
DX: G62.9 Polyneuropathy, unspecified (principal); Z79.899 Other long term (current) drug therapy
CPT/HCPCS: 82746

== ENCOUNTER → 2017-09-07 | Outpatient (CLI) | payer MEDICARE, MEDICAID ==
[2017-09-07 13:55] LABS: BASO # 0.1 10^3/uL (0.0-0.2); BASO % 0.5 % (0.0-1.0); EOS # 0.2 10^3/uL (0.0-0.50); EOS % 1.9 % (0.0-3.0); HEMATOCRIT 39.8 % (36.0-47.0); HEMOGLOBIN 12.8 g/dl (12.0-16.0); IMMATURE GRANULOCYTE # 0.1 10^3/uL (0-0); IMMATURE GRANULOCYTE % 0.6 % (0-0); LYMPH # 2.3 10^3/uL (1.5-4.5); LYMPH % 20.1 % (24.0-44.0); MEAN CORPUSCULAR HEMOGLOBIN 28.8 pg (27.0-33.0); MEAN CORPUSCULAR HGB CONC 32.2 g/dl (32.0-36.5); MEAN CORPUSCULAR VOLUME 89.4 fl (80.0-96.0); MONO # 0.7 10^3/uL (0.0-0.8); MONO % 5.9 % (0.0-5.0); NEUTROPHILS # 8.3 10^3/uL (1.8-7.7); PLATELET COUNT, AUTOMATED 297 10^3/uL (150-450); RED BLOOD COUNT 4.45 10^6/uL (4.00-5.40); RED CELL DISTRIBUTION WIDTH 13.4 % (11.5-14.5); WHITE BLOOD COUNT 11.6 10^3/uL (4.0-10.0)
[2017-09-07 14:01] LABS: APPEARANCE, URINE CLEAR (CLEAR); BACTERIA, URINE AUTO NEGATIVE (NEGATIVE); BILIRUBIN, URINE AUTO NEGATIVE (NEGATIVE); BLOOD, URINE BLOOD NEGATIVE (NEGATIVE); COLOR, URINE YELLOW (YELLOW); GLUCOSE, URINE (UA) AUTO NEGATIVE (NEGATIVE); KETONE, URINE AUTO NEGATIVE (NEGATIVE); LEUKOCYTE ESTERASE, URINE AUTO 1+ (NEGATIVE); MUCUS, URINE SMALL (NEGATIVE); NITRITE, URINE AUTO NEGATIVE (NEGATIVE); PROTEIN, URINE AUTO NEGATIVE (NEGATIVE); RBC, URINE AUTO 0 /HPF (0-3); SPECIFIC GRAVITY URINE AUTO 1.013 (1.002-1.035); SQUAMOUS EPITHELIAL CELL UR AU 3 /HPF (0-6); WBC, URINE AUTO 2 /HPF (0-3)
[2017-09-07 14:30] LABS: ESTIMATED AVERAGE GLUCOSE 108 MG/DL (60-110); HEMOGLOBIN A1c 5.4 %
[2017-09-07 14:38] LABS: ALBUMIN 3.7 GM/DL (3.2-5.2); ALBUMIN/GLOBULIN RATIO 1.03 (1.00-1.93); ALKALINE PHOSPHATASE 77 U/L (45-117); ALT/SGPT 36 U/L (12-78); ANION GAP 6 MEQ/L (8-16); AST/SGOT 27 U/L (7-37); BILIRUBIN,TOTAL 0.5 MG/DL (0.2-1.0); BLOOD UREA NITROGEN 9 MG/DL (7-18); CALCIUM LEVEL 8.8 MG/DL (8.5-10.1); CARBON DIOXIDE LEVEL 30 MEQ/L (21-32); CHLORIDE LEVEL 105 MEQ/L (98-107); CREATININE FOR GFR 0.88 MG/DL (0.55-1.02); GLOMERULAR FILTRATION RATE > 60.0 (>51); GLUCOSE, FASTING 85 MG/DL (70-105); POTASSIUM SERUM 4.4 MEQ/L (3.5-5.1); SODIUM LEVEL 141 MEQ/L (136-145); TOTAL PROTEIN 7.3 GM/DL (6.4-8.2)
== END ==
LOC: M LAB 13:07
DX: R82.99 Other abnormal findings in urine (principal); Z01.812 Encounter for preprocedural laboratory examination; R79.9 Abnormal finding of blood chemistry, unspecified; E11.9 Type 2 diabetes mellitus without complications
CPT/HCPCS: 80053

== ENCOUNTER → 2017-11-10 | Outpatient (CLI) | payer MEDICARE, MEDICAID | LOC: M SLEEP 19:57 | DX: G47.33 Obstructive sleep apnea (adult) (pediatric) (principal) | CPT/HCPCS: 95811 ==

== ENCOUNTER → 2017-12-27 | Outpatient (CLI) | payer MEDICARE, MEDICAID ==
[2017-12-27 08:32] LABS: BASO # 0.1 10^3/uL (0.0-0.2); BASO % 0.9 % (0.0-1.0); EOS # 0.2 10^3/uL (0.0-0.50); EOS % 2.9 % (0.0-3.0); HEMATOCRIT 36.3 % (36.0-47.0); HEMOGLOBIN 11.8 g/dl (12.0-15.5); IMMATURE GRANULOCYTE % 0.3 % (0-3.0); LYMPH # 2.2 10^3/uL (1.5-4.5); LYMPH % 31.6 % (24.0-44.0); MEAN CORPUSCULAR HEMOGLOBIN 28.6 pg (27.0-33.0); MEAN CORPUSCULAR HGB CONC 32.5 g/dl (32.0-36.5); MEAN CORPUSCULAR VOLUME 87.9 fl (80.0-96.0); MONO # 0.4 10^3/uL (0.0-0.8); MONO % 6.2 % (0.0-5.0); NEUTROPHILS % 58.1 % (36.0-66.0); PLATELET COUNT, AUTOMATED 259 10^3/uL (150-450); RED BLOOD COUNT 4.13 10^6/uL (4.00-5.40); RED CELL DISTRIBUTION WIDTH 13.3 % (11.5-14.5); WHITE BLOOD COUNT 6.9 10^3/uL (4.0-10.0)
[2017-12-27 08:59] LABS: ALBUMIN 3.7 GM/DL (3.2-5.2); ALBUMIN/GLOBULIN RATIO 1.12 (1.00-1.93); ALKALINE PHOSPHATASE 67 U/L (45-117); ALT/SGPT 26 U/L (12-78); ANION GAP 6 MEQ/L (8-16); AST/SGOT 20 U/L (7-37); BILIRUBIN,TOTAL 0.5 MG/DL (0.2-1.0); BLOOD UREA NITROGEN 9 MG/DL (7-18); CALCIUM LEVEL 8.4 MG/DL (8.5-10.1); CARBON DIOXIDE LEVEL 27 MEQ/L (21-32); CHLORIDE LEVEL 110 MEQ/L (98-107); CHOLESTEROL LEVEL 190 MG/DL (<200); CHOLESTEROL RISK RATIO 3.877 (<5); CREATININE FOR GFR 0.91 MG/DL (0.55-1.30); FREE T4 1.07 NG/DL (0.76-1.46); GLOMERULAR FILTRATION RATE > 60.0 (>51); GLUCOSE, FASTING 94 MG/DL (70-100); HDL CHOLESTEROL 49 MG/DL (>40); LDL CHOLESTEROL 110.2 MG/DL (<100); NON-HDL-C 141 MG/DL; POTASSIUM SERUM 3.8 MEQ/L (3.5-5.1); SODIUM LEVEL 143 MEQ/L (136-145); TRIGLYCERIDES LEVEL 154 MG/DL (<150)
[2017-12-27 10:38] LABS: TOTAL 25(OH) VITAMIN D 19.3 NG/ML (30.0-100.0)
[2017-12-27 11:33] LABS: ESTIMATED AVERAGE GLUCOSE 91 MG/DL (60-110); HEMOGLOBIN A1c 4.8 %
== END ==
LOC: M LAB 07:57
DX: E55.9 Vitamin D deficiency, unspecified (principal); E53.9 Vitamin B deficiency, unspecified; E78.4 Other hyperlipidemia; E11.65 Type 2 diabetes mellitus with hyperglycemia; Z79.899 Other long term (current) drug therapy
CPT/HCPCS: 84443

== ENCOUNTER → 2018-01-06 | Outpatient (CLI) | payer MEDICARE, MEDICAID ==
[2018-01-06 09:57] LABS: BASO # 0.1 10^3/uL (0.0-0.2); BASO % 0.7 % (0.0-1.0); EOS # 0.2 10^3/uL (0.0-0.50); EOS % 2.9 % (0.0-3.0); HEMATOCRIT 37.2 % (36.0-47.0); HEMOGLOBIN 12.1 g/dl (12.0-15.5); IMMATURE GRANULOCYTE % 0.4 % (0-3.0); LYMPH # 2.6 10^3/uL (1.5-4.5); MEAN CORPUSCULAR HEMOGLOBIN 28.3 pg (27.0-33.0); MEAN CORPUSCULAR HGB CONC 32.5 g/dl (32.0-36.5); MEAN CORPUSCULAR VOLUME 87.1 fl (80.0-96.0); MONO # 0.6 10^3/uL (0.0-0.8); MONO % 6.8 % (0.0-5.0); NEUTROPHILS # 4.9 10^3/uL (1.8-7.7); NEUTROPHILS % 58.2 % (36.0-66.0); PLATELET COUNT, AUTOMATED 258 10^3/uL (150-450); RED BLOOD COUNT 4.27 10^6/uL (4.00-5.40); RED CELL DISTRIBUTION WIDTH 13.1 % (11.5-14.5); WHITE BLOOD COUNT 8.4 10^3/uL (4.0-10.0)
[2018-01-06 09:58] LABS: HEMATOCRIT 37.2 % (36.0-47.0)
[2018-01-06 10:28] LABS: ESTIMATED AVERAGE GLUCOSE 91 MG/DL (60-110); HEMOGLOBIN A1c 4.8 %
[2018-01-06 10:33] LABS: ALBUMIN 3.6 GM/DL (3.2-5.2); ALBUMIN/GLOBULIN RATIO 1.03 (1.00-1.93); ALKALINE PHOSPHATASE 73 U/L (45-117); ALT/SGPT 27 U/L (12-78); ANION GAP 5 MEQ/L (8-16); AST/SGOT 24 U/L (7-37); BILIRUBIN,TOTAL 0.5 MG/DL (0.2-1.0); BLOOD UREA NITROGEN 9 MG/DL (7-18); CALCIUM LEVEL 8.7 MG/DL (8.5-10.1); CARBON DIOXIDE LEVEL 28 MEQ/L (21-32); CHLORIDE LEVEL 109 MEQ/L (98-107); CREATININE FOR GFR 0.94 MG/DL (0.55-1.30); FERRITIN 11 NG/ML (8-252); GLOMERULAR FILTRATION RATE > 60.0 (>51); GLUCOSE, FASTING 93 MG/DL (70-100); IRON (FE) 62 UG/DL (50-170); MAGNESIUM LEVEL 2.3 MG/DL (1.8-2.4); PERCENT SATURATION 15.9 % (13.2-45.0); PHOSPHORUS LEVEL 3.5 MG/DL (2.5-4.9); POTASSIUM SERUM 3.8 MEQ/L (3.5-5.1); SODIUM LEVEL 142 MEQ/L (136-145); TOTAL IRON BINDING CAPACITY 390 UG/DL (250-450); TOTAL PROTEIN 7.1 GM/DL (6.4-8.2)
[2018-01-06 10:34] LABS: TOTAL 25(OH) VITAMIN D 18.9 NG/ML (30.0-100.0)
[2018-01-06 10:35] LABS: VITAMIN B12 LEVEL 243 PG/ML (247-911)
[2018-01-07 12:05] LABS: PRETREATED FOLATE FOR RBCFOL 8.1 NG/ML; RBC FOLATE 457.3 NG/ML (280-791)
== END ==
LOC: M LAB 09:13
DX: K91.2 Postsurgical malabsorption, not elsewhere classified (principal); E55.9 Vitamin D deficiency, unspecified; Z98.84 Bariatric surgery status
CPT/HCPCS: 83550

== ENCOUNTER 2018-03-04 14:53 | Emergency (ER) | payer MEDICARE, MEDICAID ==
[2018-03-04 15:59] LABS: KETONE, URINE AUTO RFX NEGATIVE (NEGATIVE); MUCUS, URINE RFX SMALL (NEGATIVE); NITRITE, URINE AUTO RFX NEGATIVE (NEGATIVE); RBC, URINE AUTO RFX 2 /HPF (0-3); SPECIFIC GRAVITY UR AUTO RFX 1.028 (1.002-1.035); SQUAM EPITHELIAL CELL UR AURFX 2 /HPF (0-6); WBC, URINE AUTO RFX 4 /HPF (0-3)
[2018-03-04 16:01] LABS: LEUKOCYTE ESTERASE UR AUTO RFX TRACE (NEGATIVE)
[2018-03-04 16:34] LABS: HEMATOCRIT 40.7 % (36.0-47.0); HEMOGLOBIN 13.3 g/dl (12.0-15.5); LYMPH % 27.7 % (24.0-44.0); MEAN CORPUSCULAR HEMOGLOBIN 28.4 pg (27.0-33.0); MEAN CORPUSCULAR HGB CONC 32.7 g/dl (32.0-36.5); MONO % 7.2 % (0.0-5.0); NEUTROPHILS % 62.1 % (36.0-66.0); PLATELET COUNT, AUTOMATED 290 10^3/uL (150-450); RED BLOOD COUNT 4.68 10^6/uL (4.00-5.40); RED CELL DISTRIBUTION WIDTH 13.6 % (11.5-14.5); WHITE BLOOD COUNT 8.5 10^3/uL (4.0-10.0)
[2018-03-04 16:35] LABS: BASO # 0.1 10^3/uL (0.0-0.2); BASO % 0.6 % (0.0-1.0); EOS # 0.2 10^3/uL (0.0-0.50); IMMATURE GRANULOCYTE % 0.4 % (0-3.0); LYMPH # 2.3 10^3/uL (1.5-4.5); MONO # 0.6 10^3/uL (0.0-0.8); NEUTROPHILS # 5.3 10^3/uL (1.8-7.7)
[2018-03-04] MEDS: NS 1,000 ML IV (16:38)
[2018-03-04] MEDS: ONDANSETRON 4MG/2ML VIAL (J2405) IV (16:38)
[2018-03-04] MEDS: MORPHINE 4 MG/ML 1ML VIAL/SYRINGE (J2270) IV (16:47)
[2018-03-04 16:51] LABS: ANION GAP 11 MEQ/L (8-16); BLOOD UREA NITROGEN 11 MG/DL (7-18); CALCIUM LEVEL 8.8 MG/DL (8.5-10.1); CARBON DIOXIDE LEVEL 24 MEQ/L (21-32); CHLORIDE LEVEL 108 MEQ/L (98-107); CREATININE FOR GFR 0.87 MG/DL (0.55-1.30); GLOMERULAR FILTRATION RATE > 60.0 (>51); GLUCOSE, FASTING 100 MG/DL (70-100); POTASSIUM SERUM 4.1 MEQ/L (3.5-5.1); SODIUM LEVEL 143 MEQ/L (136-145)
[2018-03-04] MEDS ORDERED: ISOVUE-370 76% 100ML VIAL (Q9967) As Ordered (17:01)
== END 2018-03-04 19:08 | disposition home or self-care (01) ==
LOC: M ED 14:53
DX: N30.90 Cystitis, unspecified without hematuria (principal); J45.909 Unspecified asthma, uncomplicated; K21.9 Gastro-esophageal reflux disease without esophagitis; Z79.899 Other long term (current) drug therapy; Z88.2 Allergy status to sulfonamides; Z88.5 Allergy status to narcotic agent; Z88.8 Allergy status to other drugs, medicaments and biological substances; Z87.891 Personal history of nicotine dependence
CPT/HCPCS: J2270

== ENCOUNTER 2018-07-30 10:41 | Emergency (ER) | payer MEDICARE, MEDICAID | END 2018-07-30 11:36 | disposition home or self-care (01) | LOC: M ED 10:41 | DX: H66.93 Otitis media, unspecified, bilateral (principal); I25.2 Old myocardial infarction; E11.9 Type 2 diabetes mellitus without complications; I10 Essential (primary) hypertension; E78.5 Hyperlipidemia, unspecified; J45.909 Unspecified asthma, uncomplicated; K21.9 Gastro-esophageal reflux disease without esophagitis; M54.9 Dorsalgia, unspecified; Z87.891 Personal history of nicotine dependence; N28.9 Disorder of kidney and ureter, unspecified; Z96.22 Myringotomy tube(s) status; Z79.899 Other long term (current) drug therapy; Z88.5 Allergy status to narcotic agent; Z88.1 Allergy status to other antibiotic agents | CPT/HCPCS: 99282 ==

== ENCOUNTER → 2019-03-17 | Outpatient (REF) ==
[~2019-03-17] MED LIST changes: +ARNU1INH3; +CEFD1CAP8 PO; -CLON0.5T PO; +CLON0.5T8 PO; +ESTR1CRE; +MONT10TA2; +PANT40TA3; +PYRI1TAB5 PO; +ROPI2TAB; +SUCR1TAB56; -TRAZ-136 PO; +TRAZ-163 PO
[2019-03-17 18:12] LABS: BASO # 0.1 10^3/uL (0.0-0.2); BASO % 0.6 % (0.0-1.0); EOS # 0.2 10^3/uL (0.0-0.50); EOS % 1.8 % (0.0-3.0); HEMATOCRIT 38.7 % (36.0-47.0); HEMOGLOBIN 12.3 g/dl (12.0-15.5); LYMPH # 2.8 10^3/uL (1.5-4.5); LYMPH % 33.8 % (24.0-44.0); MEAN CORPUSCULAR HEMOGLOBIN 28.9 pg (27.0-33.0); MEAN CORPUSCULAR HGB CONC 31.8 g/dl (32.0-36.5); MEAN CORPUSCULAR VOLUME 91.1 fl (80.0-96.0); MONO # 0.4 10^3/uL (0.0-0.8); MONO % 5.1 % (0.0-5.0); NEUTROPHILS # 4.9 10^3/uL (1.8-7.7); NEUTROPHILS % 58.5 % (36.0-66.0); PLATELET COUNT, AUTOMATED 264 10^3/uL (150-450); RED BLOOD COUNT 4.25 10^6/uL (4.00-5.40); WHITE BLOOD COUNT 8.3 10^3/uL (4.0-10.0)
== END ==
LOC: M LAB REF 17:10
PROVIDERS: ATTEND Allergy & Immunology Allergy
DX: J45.30 Mild persistent asthma, uncomplicated (principal)

== ENCOUNTER → 2019-05-01 | Outpatient (REF) | payer MEDICARE, MEDICAID ==
[2019-05-01 17:37] LABS: APPEARANCE, URINE CLEAR (CLEAR); BACTERIA, URINE AUTO 1+ (NEGATIVE); BILIRUBIN, URINE AUTO NEGATIVE (NEGATIVE); BLOOD, URINE BLOOD 2+ (NEGATIVE); COLOR, URINE YELLOW (YELLOW); GLUCOSE, URINE (UA) AUTO NEGATIVE (NEGATIVE); KETONE, URINE AUTO NEGATIVE (NEGATIVE); LEUKOCYTE ESTERASE, URINE AUTO TRACE (NEGATIVE); NITRITE, URINE AUTO NEGATIVE (NEGATIVE); PROTEIN, URINE AUTO NEGATIVE (NEGATIVE); RBC, URINE AUTO 10 /HPF (0-3); SPECIFIC GRAVITY URINE AUTO 1.013 (1.002-1.035); SQUAMOUS EPITHELIAL CELL UR AU 1 /HPF (0-6); WBC, URINE AUTO 7 /HPF (0-3)
== END ==
LOC: M LAB REF 16:42
PROVIDERS: ATTEND Physician Assistant Medical
DX: N39.0 Urinary tract infection, site not specified (principal)

== ENCOUNTER 2020-08-02 15:57 | Emergency (ER) | payer MEDICARE, MEDICAID ==
[~2020-08-02] VITALS: Ht 175.3 cm; Wt 130.5 kg
[~2020-08-02 15:57] MED LIST changes: +BREO1INH3; +CLON0.5T2 PO; -CLON0.5T8 PO; -MONT10TA2; +MONT5TAB2; +PANT40TA29; -PANT40TA3; +PRED20TA PO; -ROPI2TAB; +ROPI2TAB3; -SIMV40TA2 PO; +SIMV40TA20 PO; -TRAZ-163 PO; +TRAZ-257 PO
[2020-08-02] MEDS ORDERED: VITA50005 (16:13)
[2020-08-02] MEDS ORDERED: ECOT81TA5 PO (16:13)
[2020-08-02] MEDS ORDERED: BUSP10TA (16:13)
[2020-08-02 16:44] LABS: BASO % 0.6 % (0.0-1.0); EOS # 0.2 10^3/uL (0.0-0.5); EOS % 2.6 % (0.0-3.0); HEMATOCRIT 35.8 % (36.0-47.0); HEMOGLOBIN 11.5 g/dl (12.0-15.5); LYMPH # 2.1 10^3/uL (1.5-5.0); LYMPH % 32.5 % (24.0-44.0); MEAN CORPUSCULAR HEMOGLOBIN 28.7 pg (27.0-33.0); MEAN CORPUSCULAR HGB CONC 32.1 g/dl (32.0-36.5); MEAN CORPUSCULAR VOLUME 89.3 fl (80.0-96.0); MONO # 0.4 10^3/uL (0.0-0.8); MONO % 6.7 % (0.0-5.0); NEUTROPHILS # 3.7 10^3/uL (1.5-8.5); NEUTROPHILS % 57.3 % (36.0-66.0); PLATELET COUNT, AUTOMATED 235 10^3/uL (150-450); RED BLOOD COUNT 4.01 10^6/uL (4.00-5.40); WHITE BLOOD COUNT 6.4 10^3/uL (4.0-10.0)
--- NOTE | 2020-08-02 16:50 | REP ---
INDICATION: CHEST PAIN. COMPARISON: 04/02/2017. TECHNIQUE: SINGLE PORTABLE AP VIEW OF THE CHEST WAS PERFORMED. FINDINGS: I see no evidence of acute infiltrate. There is mild cardiomegaly. The mediastinal silhouette is unchanged. There are multiple sternal wires present. IMPRESSION: NO ACUTE PULMONARY DISEASE. <Electronically signed by Beck Nguyen > 08/02/20 [id number]
[2020-08-02 17:16] LABS: BLOOD UREA NITROGEN 10 MG/DL (7-18); CALCIUM LEVEL 8.5 MG/DL (8.5-10.1); CARBON DIOXIDE LEVEL 26 MEQ/L (21-32); CHLORIDE LEVEL 110 MEQ/L (98-107); CK-MB VALUE MASS < 1.0 NG/ML (<3.6); CPK CREATINE PHOSPHOKINASE 52 U/L (26-192); CREATININE FOR GFR 0.86 MG/DL (0.55-1.30); GLOMERULAR FILTRATION RATE > 60.0 (>51); GLUCOSE, FASTING 93 MG/DL (70-100); MB/CK RELATIVE INDEX 1.92 (< OR =4); POTASSIUM SERUM 4.2 MEQ/L (3.5-5.1); SODIUM LEVEL 141 MEQ/L (136-145); TROPONIN I < 0.02 NG/ML (< 0.10)
[2020-08-02] MEDS ORDERED: KETOROLAC 30 MG/ML 1ML VIAL IV ONE (18:45)
[2020-08-02] MEDS ORDERED: ISOVUE-370 76% 100ML VIAL As Ordered ONE (18:48)
--- NOTE | 2020-08-02 19:25 | REPVR ---
PROCEDURE INFORMATION: Exam: CT Abdomen And Pelvis With Contrast Exam date and time: 08/02/2020 6:56 PM Age: 54 years old Clinical indication: Abdominal pain; Generalized; Additional info: Chest pain R/O perf gastric bypass TECHNIQUE: Imaging protocol: Computed tomography of the abdomen and pelvis with intravenous contrast. Radiation optimization: All CT scans at this facility use at least one of these dose optimization techniques: automated exposure control; mA and/or kV adjustment per patient size (includes targeted exams where dose is matched to clinical indication); or iterative reconstruction. Contrast material: ISO; Contrast volume: 100 ml; Contrast route: INTRAVENOUS (IV); COMPARISON: CT ABD/PEL W/IV CONTRAST ONLY 03/04/2018 5:09 PM FINDINGS: Liver: Liver is enlarged and decreased in density suggesting hepatic steatosis. Gallbladder and bile ducts: Gallbladder is surgically absent. Pancreas: Pancreas appears normal. No focal mass or peripancreatic inflammation. Spleen: Spleen appears homogeneous without focal mass. Adrenal glands: Adrenal glands are normal in appearance. Kidneys and ureters: Kidneys appear normal, with no stone, solid mass or hydronephrosis. Stomach and bowel: No evidence of small bowel obstruction. Terminal ileum has normal appearance. No evidence of acute diverticulitis. Postsurgical changes of gastric bypass procedure are present. Appendix: Appendix is not seen. No RLQ inflammation to suggest appendicitis. Intraperitoneal space: No pneumoperitoneum. Vasculature: No aortic aneurysm. Main portal and splenic veins enhance normally. Lymph nodes: No enlarged lymph nodes. Urinary bladder: Urinary bladder appears normal. Reproductive: Uterus is surgically absent. Bones/joints: Bony structures show no acute fracture or destructive process. IMPRESSION: 1. No evidence of bowel obstruction or bowel perforation related to the patient's gastric bypass procedure. No acute surgical or inflammatory intra-abdominal or pelvic process. 2. Hepatomegaly and hepatic steatosis. Electronically signed by: Diaz Rivsa On 08/02/2020 19:25:39 PM
--- NOTE | 2020-08-02 19:29 | REPVR ---
PROCEDURE INFORMATION: Exam: CT Angiography Chest With Contrast Exam date and time: 08/02/2020 6:56 PM Age: 54 years old Clinical indication: Chest pain; Type not specified; Additional info: Pleuritic chest pain TECHNIQUE: Imaging protocol: Computed tomographic angiography of the chest with intravenous contrast. 3D rendering (Not supervised by radiologist): MIP and/or 3D reconstructed images were created by the technologist. Radiation optimization: All CT scans at this facility use at least one of these dose optimization techniques: automated exposure control; mA and/or kV adjustment per patient size (includes targeted exams where dose is matched to clinical indication); or iterative reconstruction. Contrast material: ISO; Contrast volume: 100 ml; Contrast route: INTRAVENOUS (IV); COMPARISON: CT ANGIO CHEST 07/31/2017 10:42 PM FINDINGS: Pulmonary arteries: No focal pulmonary artery filling defect to suggest acute pulmonary embolus. Tortuous/bulbous appearance of the pulmonary outflow tract is unchanged since July 2017. Aorta: No thoracic aortic aneurysm or dissection. Lungs: Pulmonary vascular/interstitial pattern does not suggest active pulmonary edema. No suspicious lung mass or air space process. No central endobronchial lesion. Pleural space: No pleural effusion or pneumothorax. Heart: No overt cardiac enlargement or abnormal volume of pericardial fluid. Stable inferior pericardial calcifications Lymph nodes: No enlarged mediastinal lymph nodes. Small, nonspecific mediastinal nodes are present. Liver: Liver appears enlarged and fatty infiltrated but incompletely imaged. Bones/joints: Bony structures show no acute fracture or destructive process. IMPRESSION: 1. No evidence of acute pulmonary embolus. 2. No other acute or concerning focal intrathoracic abnormality. 3. Incidental findings, as outlined above, unchanged since July 31, 2017 Electronically signed by: Diaz Rivas On 08/02/2020 19:28:48 PM
[2020-08-02 20:28] LABS: CK-MB VALUE MASS < 1.0 NG/ML (<3.6); CPK CREATINE PHOSPHOKINASE 50 U/L (26-192); TROPONIN I < 0.02 NG/ML (< 0.10)
[2020-08-02] MEDS ORDERED: PRED20TA PO (21:37)
[2020-08-02 21:45] VITALS: BP 120/59
--- NOTE | 2020-08-03 09:37 | ECGEPIP ---
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
--- NOTE | 2020-08-03 10:04 | ECGEPIP ---
[facility] - ED Test Date: 2020-08-02 Pat Name: JENNIFER WARREN Department: Room: - Gender: Female Reference Data Expert: : 1965 Requested By: Andrew Patrick Order Number: [id number] Reading MD: Minna Villela Measurements Intervals [place] Rate: 60 P: 164 TN: 142 QRS: 53 QRSD: 111 T: -43 QT: 456 QTc: 458 Interpretive Statements ECTOPIC ATRIAL RHYTHM SEPTAL MYOCARDIAL INFARCTION, OF INDETERMINATE AGE MODERATE T-WAVE ABNORMALITY, CONSIDER INFERIOR ISCHEMIA Electronically Signed on 08-03-2020 10:04:07 EST by Minna Villela
== END 2020-08-02 22:04 | disposition home or self-care (01) ==
LOC: M ED 15:57
DX: R06.00 Dyspnea, unspecified (principal); R07.89 Other chest pain; I44.0 Atrioventricular block, first degree; R16.0 Hepatomegaly, not elsewhere classified; K76.0 Fatty (change of) liver, not elsewhere classified; E11.9 Type 2 diabetes mellitus without complications; I10 Essential (primary) hypertension; E78.5 Hyperlipidemia, unspecified; F41.9 Anxiety disorder, unspecified; Z98.84 Bariatric surgery status; G89.29 Other chronic pain; Z95.4 Presence of other heart-valve replacement; Z79.82 Long term (current) use of aspirin; Z79.890 Hormone replacement therapy; Z88.8 Allergy status to other drugs, medicaments and biological substances; Z88.5 Allergy status to narcotic agent; Z88.1 Allergy status to other antibiotic agents
CPT/HCPCS: 71045; 71275; 74177; 80048; 82550; 82553; 84484; 85025; 93005; 93041; 94760; 96374; 99285; J1885; Q9967

== ENCOUNTER → 2020-08-13 | Outpatient (CLI) | payer MEDICARE, MEDICAID ==
[~2020-08-13] MED LIST changes: +BUSP10TA; +ECOT81TA5 PO; +VITA50005
== END ==
LOC: M LABSMTC 10:44
PROVIDERS: ATTEND Family Medicine
DX: Z20.828 Contact with and (suspected) exposure to other viral communicable diseases (principal)

== ENCOUNTER → 2020-09-02 | Outpatient (CLI) | payer MEDICARE, MEDICAID ==
--- NOTE | 2020-09-02 10:33 | REP ---
INDICATION: RENAL CYST COMPARISON: None TECHNIQUE: Real time aleman scale ultrasound examination using curved array transducer. FINDINGS: The kidneys are relatively normal in reniform shape and echotexture without hydronephrosis, nephrolithiasis, cystic or renal mass lesion. Subjectively increased central sinus fat raises the possibility of early medical renal disease. Right kidney measures 11.0 x 4.1 x 4.4 cm. Left kidney measures 11.4 x 4.5 x 5.3 cm. Bladder is grossly unremarkable. IMPRESSION: 1. Cannot exclude early chronic medical renal disease. 2. No hydronephrosis. 3. <Electronically signed by Jay Ramirez > 09/02/20 [id number]
[2020-09-02 10:34] LABS: APPEARANCE, URINE HAZY (CLEAR); BACTERIA, URINE AUTO 2+ (NEGATIVE); BILIRUBIN, URINE AUTO NEGATIVE (NEGATIVE); BLOOD, URINE BLOOD 2+ (NEGATIVE); COLOR, URINE YELLOW (YELLOW); GLUCOSE, URINE (UA) AUTO NEGATIVE (NEGATIVE); KETONE, URINE AUTO NEGATIVE (NEGATIVE); LEUKOCYTE ESTERASE, URINE AUTO 1+ (NEGATIVE); MUCUS, URINE SMALL (NEGATIVE); NITRITE, URINE AUTO POSITIVE (NEGATIVE); PROTEIN, URINE AUTO NEGATIVE (NEGATIVE); RBC, URINE AUTO 2 /HPF (0-3); SQUAMOUS EPITHELIAL CELL UR AU 4 /HPF (0-6); UROBILINOGEN, URINE AUTO 0.2 mg/dL (0.0-2.0); WBC, URINE AUTO 6 /HPF (0-3)
== END ==
LOC: M RAD 09:42
PROVIDERS: ATTEND Nurse Practitioner Women's Health
DX: N28.1 Cyst of kidney, acquired (principal); R35.0 Frequency of micturition

== ENCOUNTER → 2020-10-11 | Outpatient (REF) | payer MEDICARE, MEDICAID ==
[~2020-10-11] MED LIST changes: +MONT10TA10; -MONT5TAB2
[2020-10-11 14:03] LABS: APPEARANCE, URINE HAZY (CLEAR); BACTERIA, URINE AUTO 1+ (NEGATIVE); BILIRUBIN, URINE AUTO NEGATIVE (NEGATIVE); BLOOD, URINE BLOOD NEGATIVE (NEGATIVE); COLOR, URINE YELLOW (YELLOW); GLUCOSE, URINE (UA) AUTO NEGATIVE (NEGATIVE); KETONE, URINE AUTO NEGATIVE (NEGATIVE); LEUKOCYTE ESTERASE, URINE AUTO TRACE (NEGATIVE); MUCUS, URINE SMALL (NEGATIVE); NITRITE, URINE AUTO POSITIVE (NEGATIVE); PROTEIN, URINE AUTO NEGATIVE (NEGATIVE); RBC, URINE AUTO 1 /HPF (0-3); SPECIFIC GRAVITY URINE AUTO 1.017 (1.002-1.035); SQUAMOUS EPITHELIAL CELL UR AU 1 /HPF (0-6); WBC, URINE AUTO 2 /HPF (0-3)
== END ==
LOC: M SMT 13:17
PROVIDERS: ATTEND Nurse Practitioner Women's Health
DX: N39.0 Urinary tract infection, site not specified (principal)
CPT/HCPCS: 81001; 87088; 87186; G0463

== ENCOUNTER 2021-01-02 16:53 | Emergency (ER) | payer MEDICARE, MEDICAID ==
[~2021-01-02] VITALS: Ht 172.7 cm; Wt 131.2 kg
[2021-01-02] MEDS ORDERED: ALBU83IN PO (17:23)
[2021-01-02] MEDS ORDERED: BUSP10TA PO (17:23)
[2021-01-02] MEDS ORDERED: ZOLO100T PO (17:23)
[2021-01-02] MEDS ORDERED: BREO1INH3 PO (17:23)
[2021-01-02] MEDS ORDERED: OXYB10TA23 PO (17:23)
[2021-01-02 18:16] LABS: BASO # 0.1 10^3/uL (0.0-0.2); BASO % 0.8 % (0.0-1.0); EOS # 0.2 10^3/uL (0.0-0.5); EOS % 2.2 % (0.0-3.0); HEMATOCRIT 37.2 % (36.0-47.0); HEMOGLOBIN 11.6 g/dl (12.0-15.5); LYMPH % 26.7 % (24.0-44.0); MEAN CORPUSCULAR HEMOGLOBIN 27.4 pg (27.0-33.0); MEAN CORPUSCULAR HGB CONC 31.2 g/dl (32.0-36.5); MEAN CORPUSCULAR VOLUME 87.9 fl (80.0-96.0); MONO # 0.6 10^3/uL (0.0-0.8); MONO % 7.7 % (2.0-8.0); NEUTROPHILS # 4.6 10^3/uL (1.5-8.5); NEUTROPHILS % 62.2 % (36.0-66.0); PLATELET COUNT, AUTOMATED 215 10^3/uL (150-450); RED BLOOD COUNT 4.23 10^6/uL (4.00-5.40); WHITE BLOOD COUNT 7.4 10^3/uL (4.0-10.0)
--- NOTE | 2021-01-02 18:30 | REP ---
INDICATION: DYSPNEA/COUGH. COMPARISON: 08/02/2020 TECHNIQUE: Portable FINDINGS: The technique utilized in obtaining the radiograph has magnified the cardiac silhouette and accentuated the interstitial markings. Once again, there is cardiomegaly accentuated by technique.. There is no significant change in appearance of the lung ponce. No acute patchy parenchymal opacities or pleural effusions have developed. Note is again made of previous median sternotomy. There is no change in the osseous structures. IMPRESSION: Cardiomegaly without evidence of acute cardiopulmonary disease. <Electronically signed by Daniel Marion > 01/02/21 [id number]
[2021-01-02 18:47] LABS: ALBUMIN 3.6 GM/DL (3.2-5.2); ALT/SGPT 52 U/L (12-78); BILIRUBIN,DIRECT 0.2 MG/DL (0.0-0.2); BILIRUBIN,TOTAL 0.5 MG/DL (0.2-1.0); BLOOD UREA NITROGEN 12 MG/DL (7-18); CALCIUM LEVEL 8.8 MG/DL (8.5-10.1); CARBON DIOXIDE LEVEL 25 MEQ/L (21-32); CHLORIDE LEVEL 110 MEQ/L (98-107); CREATININE FOR GFR 0.97 MG/DL (0.55-1.30); GLOMERULAR FILTRATION RATE > 60.0 (>51); GLUCOSE, FASTING 93 MG/DL (70-100); NT-PRO BNP 484 PG/ML (<125); SODIUM LEVEL 140 MEQ/L (136-145); TOTAL PROTEIN 7.5 GM/DL (6.4-8.2)
[2021-01-02 20:20] VITALS: BP 126/52
--- NOTE | 2021-01-03 05:02 | ECGEPIP ---
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
== END 2021-01-02 20:45 | disposition home or self-care (01) ==
LOC: M ED 16:53
DX: T58.91XA Toxic effect of carbon monoxide from unspecified source, accidental (unintentional), initial encounter (principal); Y92.9 Unspecified place or not applicable; Y93.9 Activity, unspecified; I51.7 Cardiomegaly; I44.0 Atrioventricular block, first degree; I25.2 Old myocardial infarction; I10 Essential (primary) hypertension; J45.909 Unspecified asthma, uncomplicated; J44.9 Chronic obstructive pulmonary disease, unspecified; K21.9 Gastro-esophageal reflux disease without esophagitis; F32.9 Major depressive disorder, single episode, unspecified; Z98.84 Bariatric surgery status; Z79.82 Long term (current) use of aspirin; Z79.899 Other long term (current) drug therapy; Z88.5 Allergy status to narcotic agent; Z88.1 Allergy status to other antibiotic agents

== ENCOUNTER → 2021-05-01 | Outpatient (REF) | payer MEDICARE, MEDICAID ==
[~2021-05-01] MED LIST changes: +ALBU83IN PO; +BREO1INH3 PO; +BUSP10TA PO; +ERGO500029; +OXYB10TA23 PO; -VITA50005
[2021-05-01 17:28] LABS: APPEARANCE, URINE CLEAR (CLEAR); BACTERIA, URINE AUTO NEGATIVE (NEGATIVE); BILIRUBIN, URINE AUTO NEGATIVE (NEGATIVE); BLOOD, URINE BLOOD 1+ (NEGATIVE); COLOR, URINE YELLOW (YELLOW); GLUCOSE, URINE (UA) AUTO NEGATIVE (NEGATIVE); KETONE, URINE AUTO NEGATIVE (NEGATIVE); LEUKOCYTE ESTERASE, URINE AUTO NEGATIVE (NEGATIVE); MUCUS, URINE SMALL (NEGATIVE); NITRITE, URINE AUTO NEGATIVE (NEGATIVE); PROTEIN, URINE AUTO NEGATIVE (NEGATIVE); RBC, URINE AUTO 2 /HPF (0-3); SPECIFIC GRAVITY URINE AUTO 1.015 (1.002-1.035); SQUAMOUS EPITHELIAL CELL UR AU 2 /HPF (0-6); UROBILINOGEN, URINE AUTO 0.2 mg/dL (0.0-2.0); WBC, URINE AUTO 1 /HPF (0-3)
== END ==
LOC: M SMT 16:50
PROVIDERS: ATTEND Nurse Practitioner Women's Health
DX: N39.0 Urinary tract infection, site not specified (principal)

== ENCOUNTER 2021-10-30 10:08 | Emergency (ER) | payer MEDICARE, MEDICAID ==
[~2021-10-30] VITALS: Ht 172.7 cm; Wt 125.9 kg
[~2021-10-30 10:08] MED LIST changes: +BUTA-198 PO; -CEFD1CAP8 PO; +CEFD300C41 PO; +CETI5SOL3 PO; +CIPR500T39 PO; +ERGO2500 PO; +GABA-283 PO; -MONT10TA10; +MONT10TA97; +MONT10TA97 PO; +SERT-141 PO
[2021-10-30] MEDS ORDERED: MECL-136 (10:21)
[2021-10-30] MEDS ORDERED: PRED10TA2 (10:21)
[2021-10-30] MEDS ORDERED: MYRB50TA (10:21)
[2021-10-30] MEDS ORDERED: ZOLO100T (10:21)
[2021-10-30 10:45] LABS: BASO # 0.1 10^3/uL (0.0-0.2); BASO % 1.1 % (0.0-1.0); EOS # 0.2 10^3/uL (0.0-0.5); HEMATOCRIT 39.9 % (36.0-47.0); HEMOGLOBIN 12.9 g/dl (12.0-15.5); LYMPH # 3.9 10^3/uL (1.5-5.0); LYMPH % 37.3 % (24.0-44.0); MEAN CORPUSCULAR HEMOGLOBIN 27.8 pg (27.0-33.0); MEAN CORPUSCULAR HGB CONC 32.3 g/dl (32.0-36.5); MONO # 0.7 10^3/uL (0.0-0.8); MONO % 6.9 % (2.0-8.0); NEUTROPHILS # 5.4 10^3/uL (1.5-8.5); NEUTROPHILS % 51.6 % (36.0-66.0); PLATELET COUNT, AUTOMATED 269 10^3/uL (150-450); RED BLOOD COUNT 4.64 10^6/uL (4.00-5.40); WHITE BLOOD COUNT 10.4 10^3/uL (4.0-10.0)
[2021-10-30 10:56] LABS: INR 1.03; PROTHROMBIN TIME 13.9 SECONDS (12.7-14.5)
[2021-10-30 11:22] LABS: CK-MB VALUE MASS < 1.0 NG/ML (<3.6); CPK CREATINE PHOSPHOKINASE 43 U/L (26-192); MB/CK RELATIVE INDEX 2.33 (< OR =4)
[2021-10-30 11:27] LABS: ALBUMIN 3.9 GM/DL (3.2-5.2); ALT/SGPT 88 U/L (12-78); BILIRUBIN,DIRECT 0.2 MG/DL (0.0-0.2); BILIRUBIN,TOTAL 0.6 MG/DL (0.2-1.0); BLOOD UREA NITROGEN 14 MG/DL (7-18); CALCIUM LEVEL 9.1 MG/DL (8.5-10.1); CARBON DIOXIDE LEVEL 28 MEQ/L (21-32); CHLORIDE LEVEL 110 MEQ/L (98-107); CREATININE FOR GFR 0.95 MG/DL (0.55-1.30); FREE T4 1.16 NG/DL (0.76-1.46); GLOMERULAR FILTRATION RATE > 60.0 (>51); GLUCOSE, FASTING 89 MG/DL (70-100); LIPASE 162 U/L (73-393); NT-PRO BNP 493 PG/ML (<125); POTASSIUM SERUM 3.8 MEQ/L (3.5-5.1); SODIUM LEVEL 143 MEQ/L (136-145); TOTAL PROTEIN 7.5 GM/DL (6.4-8.2)
[2021-10-30] MEDS: NITROGLYCERIN 0.4 MG SUBL TABLET SL PRN ×2 (11:41→11:48)
[2021-10-30 11:48] VITALS: BP 141/67
[2021-10-30 12:08] LABS: CK-MB VALUE MASS < 1.0 NG/ML (<3.6); CPK CREATINE PHOSPHOKINASE 38 U/L (26-192); MB/CK RELATIVE INDEX 2.63 (< OR =4)
[2021-10-30] MEDS ORDERED: ISOVUE-370 76% 100ML VIAL As Ordered ONE (15:24)
[2021-10-30 16:34] VITALS: BP 131/70
== END 2021-10-30 16:40 | disposition home or self-care (01) ==
LOC: M ED 10:08
DX: R07.9 Chest pain, unspecified (principal); I51.9 Heart disease, unspecified; I44.0 Atrioventricular block, first degree; Z88.2 Allergy status to sulfonamides; Z88.8 Allergy status to other drugs, medicaments and biological substances; Z79.899 Other long term (current) drug therapy
CPT/HCPCS: 36415; 71045; 71275; 80048; 80076; 82550; 82553; 83690; 83880; 84439; 84443; 84484; 85025; 85610; 93005; 93041; 94760; 99285; Q9967

== ENCOUNTER → 2022-01-07 | Outpatient (CLI) | payer MEDICARE, MEDICAID ==
[~2022-01-07] MED LIST changes: +MECL-136; +MYRB50TA; +PRED10TA2; +ZOLO100T
[2022-01-07 12:29] LABS: BASO % 0.6 % (0.0-1.0); EOS # 0.2 10^3/uL (0.0-0.5); EOS % 3.1 % (0.0-3.0); HEMATOCRIT 37.2 % (36.0-47.0); HEMOGLOBIN 12.2 g/dl (12.0-15.5); LYMPH # 2.4 10^3/uL (1.5-5.0); LYMPH % 37.1 % (24.0-44.0); MEAN CORPUSCULAR HEMOGLOBIN 29.2 pg (27.0-33.0); MEAN CORPUSCULAR HGB CONC 32.8 g/dl (32.0-36.5); MONO # 0.4 10^3/uL (0.0-0.8); MONO % 6.7 % (2.0-8.0); NEUTROPHILS # 3.4 10^3/uL (1.5-8.5); NEUTROPHILS % 52.3 % (36.0-66.0); PLATELET COUNT, AUTOMATED 235 10^3/uL (150-450); RED BLOOD COUNT 4.18 10^6/uL (4.00-5.40); WHITE BLOOD COUNT 6.4 10^3/uL (4.0-10.0)
== END ==
LOC: M LAB 11:59
PROVIDERS: ATTEND Internal Medicine Pulmonary Disease
DX: J45.20 Mild intermittent asthma, uncomplicated (principal)

== ENCOUNTER → 2022-02-09 | Outpatient (CLI) | payer MEDICARE, MEDICAID ==
[~2022-02-09] MED LIST changes: +ALBU2.5V10 PO; -ALBU83IN PO
== END ==
LOC: M PLARAD 09:20
PROVIDERS: ATTEND Internal Medicine Pulmonary Disease
DX: R91.1 Solitary pulmonary nodule (principal); D17.4 Benign lipomatous neoplasm of intrathoracic organs
CPT/HCPCS: 78815; A9552

== ENCOUNTER → 2022-05-28 | Outpatient (REF) | payer MEDICARE, MEDICAID ==
[2022-05-28 12:43] LABS: APPEARANCE, URINE MANUAL HAZY (CLEAR); COLOR, URINE MANUAL YELLOW (YELLOW)
[2022-05-28 12:46] LABS: BILIRUBIN, URINE MANUAL NEGATIVE (NEGATIVE); BLOOD URINE MANUAL POSITIVE (NEGATIVE); GLUCOSE, URINE (UA) MANUAL NEGATIVE (NEGATIVE); KETONE, URINE MANUAL NEGATIVE (NEGATIVE); LEUKOCYTE ESTERASE, URINE MAN POSITIVE (NEGATIVE); NITRITE, URINE MANUAL NEGATIVE (NEGATIVE); PROTEIN, URINE MANUAL NEGATIVE (NEGATIVE); SPECIFIC GRAVITY,URINE MANUAL 1.025 (1.002-1.035); UROBILINOGEN, URINE MANUAL NORMAL (NORMAL)
[2022-05-28 14:26] LABS: BACTERIA, URINE MOD AMOUNT; MUCUS, URINE SMALL AMOUNT (NEGATIVE); SQUAMOUS EPITHELIAL CELL URINE SMALL AMOUNT /hpf (SMALL AMT); TRANSITIONAL EPI CELLS, URINE SMALL AMOUNT /hpf; WBC, URINE 40-50 /hpf (0-3)
== END ==
LOC: M LAB REF 12:21
PROVIDERS: ATTEND Physician Assistant
DX: N39.0 Urinary tract infection, site not specified (principal)

== ENCOUNTER → 2022-07-06 | Outpatient (CLI) | payer MEDICARE, MEDICAID | LOC: M RAD 16:18 | PROVIDERS: ATTEND Physician Assistant | DX: J06.9 Acute upper respiratory infection, unspecified (principal); Z98.890 Other specified postprocedural states ==

== ENCOUNTER → 2022-08-26 | Outpatient (CLI) | payer MEDICARE, MEDICAID | LOC: M RAD 13:29 | PROVIDERS: ATTEND Internal Medicine Pulmonary Disease | DX: J47.9 Bronchiectasis, uncomplicated (principal); R05.9 Cough, unspecified ==

== ENCOUNTER → 2022-08-27 | Outpatient (CLI) | payer MEDICARE, MEDICAID ==
[~2022-08-27] MED LIST changes: +HYDR-3713 PO
[2022-08-27 16:14] LABS: BASO # 0.1 10^3/uL (0.0-0.2); BASO % 0.5 % (0.0-1.0); EOS # 0.2 10^3/uL (0.0-0.5); EOS % 1.5 % (0.0-3.0); HEMATOCRIT 42.6 % (36.0-47.0); HEMOGLOBIN 13.7 g/dl (12.0-15.5); LYMPH % 38.2 % (24.0-44.0); MEAN CORPUSCULAR HEMOGLOBIN 29.1 pg (27.0-33.0); MEAN CORPUSCULAR HGB CONC 32.2 g/dl (32.0-36.5); MEAN CORPUSCULAR VOLUME 90.4 fl (80.0-96.0); MONO # 0.8 10^3/uL (0.0-0.8); MONO % 7.7 % (2.0-8.0); NEUTROPHILS # 5.4 10^3/uL (1.5-8.5); NEUTROPHILS % 51.9 % (36.0-66.0); PLATELET COUNT, AUTOMATED 286 10^3/uL (150-450); RED BLOOD COUNT 4.71 10^6/uL (4.00-5.40); WHITE BLOOD COUNT 10.4 10^3/uL (4.0-10.0)
[2022-08-27 16:43] LABS: IMMUNOGLOBULIN A 285.8 MG/DL (40-350); IMMUNOGLOBULIN G 1318 MG/DL (650-1600); IMMUNOGLOBULIN M 139.7 MG/DL (50-300)
[2022-08-27 16:45] LABS: ERYTHROCYTE SEDIMENTATION RATE 31 mm/hr (0-30)
[2022-08-27 16:46] LABS: IMMUNOGLOBULIN E 46.2 IU/ML (0-378)
[2022-09-15 18:07] LABS: ANTI TETANUS ANTIBODY 4.58 IU/mL (<0.10); STREP PNEUMO TYPE 1 0.3 ug/mL (>1.3); STREP PNEUMO TYPE 12F <0.1 ug/mL (>1.3); STREP PNEUMO TYPE 14 12.4 ug/mL (>1.3); STREP PNEUMO TYPE 18C 2.7 ug/mL (>1.3); STREP PNEUMO TYPE 19A 1.7 ug/mL (>1.3); STREP PNEUMO TYPE 19F 6.7 ug/mL (>1.3); STREP PNEUMO TYPE 23F 0.8 ug/mL (>1.3); STREP PNEUMO TYPE 3 0.4 ug/mL (>1.3); STREP PNEUMO TYPE 4 0.8 ug/mL (>1.3); STREP PNEUMO TYPE 6B <0.1 ug/mL (>1.3); STREP PNEUMO TYPE 7F <0.1 ug/mL (>1.3); STREP PNEUMO TYPE 8 0.1 ug/mL (>1.3); STREP PNEUMO TYPE 9N 3.1 ug/mL (>1.3); STREP PNEUMO TYPE 9V 1.2 ug/mL (>1.3)
== END ==
LOC: M LAB 15:33
PROVIDERS: ATTEND Allergy & Immunology Allergy
DX: D84.9 Immunodeficiency, unspecified (principal)

== ENCOUNTER 2022-09-20 04:48 | Emergency (ER) | payer MEDICARE, MEDICAID ==
[~2022-09-20] VITALS: Ht 172.7 cm; Wt 122.7 kg
[~2022-09-20 04:48] MED LIST changes: -HYDR-3713 PO
[2022-09-20] MEDS ORDERED: HYDR-3713 PO (08:21)
[2022-09-20 08:41] VITALS: BP 130/63
== END 2022-09-20 08:47 | disposition home or self-care (01) ==
LOC: M ED 04:48
DX: S60.931A Unspecified superficial injury of right thumb, initial encounter (principal); S89.92XA Unspecified injury of left lower leg, initial encounter; X58.XXXA Exposure to other specified factors, initial encounter; Y92.099 Unspecified place in other non-institutional residence as the place of occurrence of the external cause; E11.9 Type 2 diabetes mellitus without complications; I25.2 Old myocardial infarction; I10 Essential (primary) hypertension; J45.909 Unspecified asthma, uncomplicated; K21.9 Gastro-esophageal reflux disease without esophagitis; E78.5 Hyperlipidemia, unspecified; G62.9 Polyneuropathy, unspecified; Z79.899 Other long term (current) drug therapy; Z88.5 Allergy status to narcotic agent; Z88.2 Allergy status to sulfonamides

== ENCOUNTER → 2022-09-25 | Outpatient (CLI) | payer MEDICARE, MEDICAID ==
[~2022-09-25] MED LIST changes: +HYDR-3713 PO
== END ==
LOC: M RAD 11:42
PROVIDERS: ATTEND Physician Assistant Surgical
DX: M79.662 Pain in left lower leg (principal)

== ENCOUNTER → 2022-10-16 | Outpatient (CLI) | payer MEDICARE, MEDICAID ==
[~2022-10-16] MED LIST changes: +ISOVUE-300 61% 100ML VIAL ONE; +LIDOCAINE 1% MDV 20ML VIAL ONE; +methylPREDNISolone 40MG 1ML VIAL ONE; +methylPREDNISolone SUSP 40MG/ML 1ML VIAL (DEPO MEDROL) ONE
== END ==
LOC: M PLAIMG 13:50
PROVIDERS: ATTEND Physician Assistant Surgical
DX: M16.12 Unilateral primary osteoarthritis, left hip (principal)
CPT/HCPCS: 20610; 76000; J1030; J2920; Q9967

== ENCOUNTER → 2022-10-30 | Outpatient (CLI) | payer MEDICARE, MEDICAID ==
[~2022-10-30] MED LIST changes: -ISOVUE-300 61% 100ML VIAL ONE; -LIDOCAINE 1% MDV 20ML VIAL ONE; -methylPREDNISolone 40MG 1ML VIAL ONE; -methylPREDNISolone SUSP 40MG/ML 1ML VIAL (DEPO MEDROL) ONE
[2022-10-30 10:31] LABS: HEMATOCRIT 40.4 % (36.0-47.0); MEAN CORPUSCULAR HGB CONC 32.2 g/dl (32.0-36.5); PLATELET COUNT, AUTOMATED 247 10^3/uL (150-450); RED BLOOD COUNT 4.49 10^6/uL (4.00-5.40); WHITE BLOOD COUNT 9.1 10^3/uL (4.0-10.0)
[2022-10-30 10:52] LABS: IRON (FE) 53 UG/DL (50-170); PERCENT SATURATION 15.5 % (13.2-45.0); TOTAL IRON BINDING CAPACITY 342 UG/DL (250-425)
[2022-10-30 10:56] LABS: ALBUMIN 3.4 G/DL (3.2-5.2); ALKALINE PHOSPHATASE 72 U/L (46-116); ALT/SGPT 49 U/L (7.0-40); AST/SGOT 40 U/L (<34); BILIRUBIN,TOTAL 0.6 MG/DL (0.3-1.2); BLOOD UREA NITROGEN 9 MG/DL (9-23); CALCIUM LEVEL 8.9 MG/DL (8.5-10.1); CARBON DIOXIDE LEVEL 25 MMOL/L (20-31); CHLORIDE LEVEL 107 MMOL/L (98-107); CREATININE FOR GFR 0.88 MG/DL (0.55-1.30); FERRITIN 30.5 NG/ML (7.3-270.7); FREE T4 1.09 NG/DL (0.89-1.76); GLOMERULAR FILTRATION RATE > 60.0 (>51); GLUCOSE, FASTING 105 MG/DL (60-100); POTASSIUM SERUM 4.3 MMOL/L (3.5-5.1); SODIUM LEVEL 140 MMOL/L (136-145); THYROID STIMULATING HORMONE 2.368 uIU/ML (0.55-4.78); TOTAL PROTEIN 6.5 G/DL (5.7-8.2)
[2022-10-30 11:02] LABS: HEMOGLOBIN A1c 5.4 % (4.0-6.0)
== END ==
LOC: M LAB 09:15
PROVIDERS: ATTEND Physician Assistant
DX: I10 Essential (primary) hypertension (principal); R73.03 Prediabetes; E55.9 Vitamin D deficiency, unspecified; E78.5 Hyperlipidemia, unspecified; E61.1 Iron deficiency

== ENCOUNTER → 2022-11-05 | Outpatient (CLI) | payer MEDICARE, MEDICAID | LOC: M SOG 07:55 | PROVIDERS: ATTEND Physician Assistant | DX: S63.241A Subluxation of distal interphalangeal joint of left index finger, initial encounter (principal); M19.041 Primary osteoarthritis, right hand; M79.644 Pain in right finger(s); M79.641 Pain in right hand; Y99.8 Other external cause status; Y92.89 Other specified places as the place of occurrence of the external cause; Y93.89 Activity, other specified; X58.XXXA Exposure to other specified factors, initial encounter ==

== ENCOUNTER → 2022-11-28 | Outpatient (CLI) | payer MEDICARE, MEDICAID | LOC: M RAD 11:05 | PROVIDERS: ATTEND Orthopaedic Surgery Hand Surgery | DX: M79.644 Pain in right finger(s) (principal); M85.441 Solitary bone cyst, right hand; S63.641A Sprain of metacarpophalangeal joint of right thumb, initial encounter; X58.XXXA Exposure to other specified factors, initial encounter; Y92.9 Unspecified place or not applicable; Y93.9 Activity, unspecified; Y99.9 Unspecified external cause status ==

== ENCOUNTER 2023-01-07 10:51 | Emergency (ER) | payer MEDICARE, MEDICAID ==
[~2023-01-07] VITALS: Ht 172.7 cm; Wt 127.2 kg
[2023-01-07 11:24] LABS: BASO # 0.1 10^3/uL (0.0-0.2); BASO % 0.6 % (0.0-1.0); EOS # 0.2 10^3/uL (0.0-0.5); EOS % 2.3 % (0.0-3.0); HEMATOCRIT 37.7 % (36.0-47.0); HEMOGLOBIN 12.6 g/dl (12.0-15.5); LYMPH # 2.5 10^3/uL (1.5-5.0); LYMPH % 31.8 % (24.0-44.0); MEAN CORPUSCULAR HEMOGLOBIN 29.7 pg (27.0-33.0); MEAN CORPUSCULAR HGB CONC 33.4 g/dl (32.0-36.5); MEAN CORPUSCULAR VOLUME 88.9 fl (80.0-96.0); MONO # 0.6 10^3/uL (0.0-0.8); MONO % 7.8 % (2.0-8.0); NEUTROPHILS # 4.4 10^3/uL (1.5-8.5); NEUTROPHILS % 57.2 % (36.0-66.0); PLATELET COUNT, AUTOMATED 221 10^3/uL (150-450); RED BLOOD COUNT 4.24 10^6/uL (4.00-5.40); WHITE BLOOD COUNT 7.7 10^3/uL (4.0-10.0)
[2023-01-07] MEDS ORDERED: ASPIRIN 81MG CHEW TABLET PO ONE (11:25)
[2023-01-07] MEDS ORDERED: ONDANSETRON 4MG 2ML VIAL IV ONE (11:25)
[2023-01-07] MEDS: MORPHINE 2 MG/ML 1ML VIAL IV PRN ×2 (11:34→12:29)
[2023-01-07 11:45] LABS: PARTIAL THROMBOPLASTIN TIME 30.6 SECONDS (24.8-34.2)
[2023-01-07 11:47] LABS: D-DIMER QUANT 282.46 ng/ml (<500)
[2023-01-07 11:56] LABS: LIPASE 39 U/L (12-53)
[2023-01-07 11:58] LABS: ALBUMIN 3.8 G/DL (3.2-5.2); ALKALINE PHOSPHATASE 74 U/L (46-116); ALT/SGPT 51 U/L (7.0-40); AST/SGOT 47 U/L (<34); BILIRUBIN,DIRECT 0.3 MG/DL (<0.4); BILIRUBIN,TOTAL 0.7 MG/DL (0.3-1.2); BLOOD UREA NITROGEN 8 MG/DL (9-23); CALCIUM LEVEL 9.2 MG/DL (8.5-10.1); CARBON DIOXIDE LEVEL 25 MMOL/L (20-31); CHLORIDE LEVEL 106 MMOL/L (98-107); CK-MB VALUE MASS < 1.0 NG/ML (<3.6); CPK CREATINE PHOSPHOKINASE 43 U/L (34-145); CREATININE FOR GFR 0.87 MG/DL (0.55-1.30); GLOMERULAR FILTRATION RATE > 60.0 (>51); GLUCOSE, FASTING 85 MG/DL (60-100); MB/CK RELATIVE INDEX 2.32 (< OR =4); POTASSIUM SERUM 3.8 MMOL/L (3.5-5.1); SODIUM LEVEL 138 MMOL/L (136-145)
[2023-01-07 12:00] LABS: FREE T4 1.09 NG/DL (0.89-1.76); THYROID STIMULATING HORMONE 3.784 uIU/ML (0.55-4.78)
[2023-01-07 12:59] LABS: CK-MB VALUE MASS < 1.0 NG/ML (<3.6)
[2023-01-07 13:00] LABS: CPK CREATINE PHOSPHOKINASE 40 U/L (34-145)
[2023-01-07] MEDS ORDERED: ISOVUE-370 76% 100ML VIAL As Ordered ONE (13:40)
[2023-01-07 17:15] VITALS: BP 135/65
== END 2023-01-07 17:23 | disposition home or self-care (01) ==
LOC: M ED 10:51
DX: R07.9 Chest pain, unspecified (principal); I44.0 Atrioventricular block, first degree; I25.2 Old myocardial infarction; E11.9 Type 2 diabetes mellitus without complications; J45.909 Unspecified asthma, uncomplicated; E78.5 Hyperlipidemia, unspecified; I10 Essential (primary) hypertension; Z88.2 Allergy status to sulfonamides; Z87.891 Personal history of nicotine dependence; Z88.5 Allergy status to narcotic agent; Z79.52 Long term (current) use of systemic steroids; Z79.891 Long term (current) use of opiate analgesic; Z79.899 Other long term (current) drug therapy
CPT/HCPCS: 71045; 71275; 80048; 80076; 82550; 82553; 83690; 83880; 84439; 84443; 84484; 85025; 85379; 85730; 93005; 93041; 94760; 96374; 96375; 96376; 99285; J2405; Q9967

== ENCOUNTER → 2023-01-22 | Outpatient (CLI) | payer MEDICARE, MEDICAID ==
[2023-01-27 02:07] LABS: STREP PNEUMO TYPE 1 7.2 ug/mL (>1.3); STREP PNEUMO TYPE 12F <0.1 ug/mL (>1.3); STREP PNEUMO TYPE 14 10.9 ug/mL (>1.3); STREP PNEUMO TYPE 18C 2.6 ug/mL (>1.3); STREP PNEUMO TYPE 19F 12.1 ug/mL (>1.3); STREP PNEUMO TYPE 23F 6.4 ug/mL (>1.3); STREP PNEUMO TYPE 3 2.3 ug/mL (>1.3); STREP PNEUMO TYPE 4 3.3 ug/mL (>1.3); STREP PNEUMO TYPE 6B 0.6 ug/mL (>1.3); STREP PNEUMO TYPE 7F 0.6 ug/mL (>1.3); STREP PNEUMO TYPE 8 5.5 ug/mL (>1.3); STREP PNEUMO TYPE 9N >21.7 ug/mL (>1.3); STREP PNEUMO TYPE 9V 5.2 ug/mL (>1.3)
== END ==
LOC: M LAB 08:21
PROVIDERS: ATTEND Allergy & Immunology Allergy
DX: D84.9 Immunodeficiency, unspecified (principal); I25.10 Atherosclerotic heart disease of native coronary artery without angina pectoris; E78.2 Mixed hyperlipidemia

== ENCOUNTER → 2023-01-22 | Outpatient (CLI) | payer MEDICARE, MEDICAID ==
[2023-01-22 09:25] LABS: CHOLESTEROL RISK RATIO 3.81 (<5); HDL CHOLESTEROL 44.3 MG/DL (>40); LDL CHOLESTEROL 99.3 MG/DL (<100); NON-HDL-C 124.7 MG/DL
== END ==
LOC: M LAB 08:23
PROVIDERS: ATTEND Internal Medicine Cardiovascular Disease
DX: I25.10 Atherosclerotic heart disease of native coronary artery without angina pectoris (principal); E78.2 Mixed hyperlipidemia

== ENCOUNTER → 2023-02-20 | Outpatient (REF) | payer MEDICARE, MEDICAID ==
[2023-02-20 17:50] LABS: APPEARANCE, URINE CLOUDY (CLEAR); BACTERIA, URINE AUTO 1+ (NEGATIVE); BILIRUBIN, URINE AUTO NEGATIVE (NEGATIVE); BLOOD, URINE BLOOD 1+ (NEGATIVE); COLOR, URINE AMBER (YELLOW); GLUCOSE, URINE (UA) AUTO NEGATIVE (NEGATIVE); KETONE, URINE AUTO NEGATIVE (NEGATIVE); LEUKOCYTE ESTERASE, URINE AUTO 2+ (NEGATIVE); MUCUS, URINE SMALL (NEGATIVE); NITRITE, URINE AUTO NEGATIVE (NEGATIVE); PROTEIN, URINE AUTO NEGATIVE (NEGATIVE); RBC, URINE AUTO 2 /HPF (0-3); SPECIFIC GRAVITY URINE AUTO 1.024 (1.002-1.035); SQUAMOUS EPITHELIAL CELL UR AU 15 /HPF (0-6); UROBILINOGEN, URINE AUTO 0.2 mg/dL (0.0-2.0); WBC, URINE AUTO 12 /HPF (0-3)
== END ==
LOC: M LAB REF 17:23
PROVIDERS: ATTEND Physician Assistant
DX: N39.0 Urinary tract infection, site not specified (principal)

== ENCOUNTER → 2023-03-01 | Outpatient (CLI) | payer MEDICARE, MEDICAID ==
[~2023-03-01] MED LIST changes: -ROPI2TAB3; +ROPI2TAB46
[2023-03-01 09:06] LABS: LIPASE 41 U/L (12-53)
[2023-03-01 09:08] LABS: ALBUMIN 3.6 G/DL (3.2-5.2); ALKALINE PHOSPHATASE 70 U/L (46-116); ALT/SGPT 37 U/L (7.0-40); AST/SGOT 35 U/L (<34); BILIRUBIN,TOTAL 0.4 MG/DL (0.3-1.2); BLOOD UREA NITROGEN 9 MG/DL (9-23); CALCIUM LEVEL 8.6 MG/DL (8.5-10.1); CARBON DIOXIDE LEVEL 29 MMOL/L (20-31); CHLORIDE LEVEL 107 MMOL/L (98-107); CREATININE FOR GFR 0.82 MG/DL (0.55-1.30); GLOMERULAR FILTRATION RATE > 60.0 (>51); GLUCOSE, FASTING 107 MG/DL (60-100); POTASSIUM SERUM 3.8 MMOL/L (3.5-5.1); SODIUM LEVEL 142 MMOL/L (136-145); TOTAL PROTEIN 6.7 G/DL (5.7-8.2)
[2023-03-01 09:28] LABS: CA19-9 TUMOR MARKER,CARBOHYDRA 10.7 U/ML (<35.0)
== END ==
LOC: M LAB 08:06
PROVIDERS: ATTEND Internal Medicine Gastroenterology
DX: K86.89 Other specified diseases of pancreas (principal); R93.3 Abnormal findings on diagnostic imaging of other parts of digestive tract; R10.9 Unspecified abdominal pain; Z88.2 Allergy status to sulfonamides; Z88.5 Allergy status to narcotic agent

== ENCOUNTER → 2023-03-24 | Outpatient (CLI) | payer MEDICARE, MEDICAID ==
[~2023-03-24] MED LIST changes: -GABA-283 PO; +GABA-284 PO; +PROHANCE 279.3MG/ML 15ML VIAL ONE; +PROHANCE 279.3MG/ML 5ML VIAL ONE
== END ==
LOC: M PLAIMG 03-08 08:50
PROVIDERS: ATTEND Internal Medicine Gastroenterology
DX: K86.89 Other specified diseases of pancreas (principal); R93.3 Abnormal findings on diagnostic imaging of other parts of digestive tract; R10.9 Unspecified abdominal pain
CPT/HCPCS: 74183; A9576

== ENCOUNTER → 2023-04-01 | Outpatient (CLI) | payer MEDICARE, MEDICAID ==
[~2023-04-01] MED LIST changes: -PROHANCE 279.3MG/ML 15ML VIAL ONE; -PROHANCE 279.3MG/ML 5ML VIAL ONE
== END ==
LOC: M WHC 09:48
PROVIDERS: ATTEND Nurse Practitioner Adult Health
DX: Z13.820 Encounter for screening for osteoporosis (principal); M85.852 Other specified disorders of bone density and structure, left thigh